=== PATIENT | female | born 1950 | race Caucasian/White ===

== ENCOUNTER 2018-04-16 19:07 | Inpatient (IN) ==
[2018-04-16] MEDS ORDERED: Morphine Inj 4 MG/ML Vial ONE (19:24)
[2018-04-16] MEDS ORDERED: Diphtheria/Tetanus/Pertussis Vaccine Inj 0.5 ML Syringe IM ONE (19:32)
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
[2018-04-16] MEDS ORDERED: Morphine Inj 4 MG/ML Vial IV.PUSH ONE (20:15)
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
[2018-04-16] MEDS ORDERED: Etomidate Inj 20 MG/10 ML Ampul IV.PUSH ONE (21:03)
[2018-04-16] MEDS ORDERED: Succinylcholine Inj 100 MG/5 ML Syringe IV.PUSH ONE (21:03)
[2018-04-16] MEDS ORDERED: Propofol 1000 mg/100 ml Inj 1,000 MG/100 ML BOTTLE IV.CONT PRN (21:14)
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
[2018-04-16] MEDS ORDERED: Tetanus/Diphtheria Toxoid Adult Vaccine Inj 0.5 ML Vial IM ONE (21:26)
[2018-04-16 21:42] LABS: ABG PCO2 45 mmHg (38-42); ABG PO2 383 mmHg (61-120)
[2018-04-16] MEDS ORDERED: Sod Chloride 0.9% Inj 1,000 ML IV.CONT SCH (21:45)
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
[2018-04-16] MEDS ORDERED: Sodium Chlor 0.9% Inj 250 ML ONE (22:31)
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
[2018-04-16] MEDS ORDERED: Heparin 10,000 UNITS/10 ML Vial (for IV use) ONE (22:54)
[2018-04-16] MEDS ORDERED: Protamine Sulfate Inj 50 MG/5 ML Vial ONE (23:37)
[2018-04-16 23:44] LABS: ABG Base Excess -3.9 mmol/L (-2-2); ABG PCO2 48 mmHg (38-42); ABG PO2 421 mmHg (61-120)
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
[2018-04-17] MEDS ORDERED: Sodium Phosphate Inj 30 MMOL in Sodium Chlor 0.9% Inj 250 ML IV.SIG PRN (00:03)
[2018-04-17] MEDS ORDERED: Potassium Phosphate 500 MG Soluble Tablet PO PRN ×2 (00:03)
[2018-04-17] MEDS ORDERED: Magnesium Sulfate Inj 2 GM in Sodium Chlor 0.9% Inj 96 ML IV.SIG PRN (00:03)
[2018-04-17] MEDS ORDERED: Magnesium Sulfate Inj 4 GM in Sodium Chlor 0.9% Inj 92 ML IV.SIG PRN (00:03)
[2018-04-17] MEDS ORDERED: Potassium Chlor 40 mEq Premix 40 MEQ/100 ML PIGGYBACK IV.SIG PRN (00:03)
[2018-04-17] MEDS ORDERED: Potassium Chlor 20 mEq Premix 20 MEQ/100 ML PIGGYBACK IV.SIG PRN ×2 (00:03)
[2018-04-17] MEDS ORDERED: Magnesium Oxide 400 MG Tablet PO PRN (00:03)
[2018-04-17] MEDS ORDERED: Potassium Phosphate Inj 30 MMOL in Sodium Chlor 0.9% Inj 250 ML IV.SIG PRN (00:03)
[2018-04-17] MEDS ORDERED: Potassium Chloride 25 MEQ Effervescent Tablet PO PRN (00:03)
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
[2018-04-17] MEDS: Docusate Sodium 100 MG Capsule PO SCH ×3 (00:13→20:55)
[2018-04-17] MEDS: fentaNYL 10 mcg/mL Premix Drip 2,500 MCG/250 ML BAG IV.SIG PRN ×2 (00:13→23:51)
[2018-04-17 00:32] LABS: Hematocrit 36.5 % (35.0-46.0); Hemoglobin 12.6 gm/dL (11.6-15.3); Mean Corpuscular HGB Conc 34.4 % (32.0-36.0); Mean Corpuscular Hemoglobin 31.1 pg (27.0-34.0); Mean Corpuscular Volume 90.6 fL (80.0-100.0); Mean Platelet Volume 7.1 fL (7.0-11.0); Platelet Count 129 th/mm3 (150-450); Red Blood Count 4.03 mil/mm3 (4.00-5.30); Red Cell Distribution Width 14.6 % (11.6-17.2); White Blood Count 24.1 th/mm3 (4.0-11.0)
[2018-04-17 00:39] LABS: Bilirubin,Urine Negative (Negative); Clarity,Urine Clear (Clear); Color,Urine Yellow (Yellw/Straw); Glucose,Urine (UA) 50 mg/dL (Negative); Leukocyte Esterase,Urine Negative (Negative); Nitrite,Urine Negative (Negative); Squamous Epithelial Cell,Urine <1 /hpf (0-5)
[2018-04-17 00:42] LABS: Amphetamine Screen,Urine Neg (Neg); Barbiturate Screen,Urine Neg (Neg); Cannabinoid Screen,Urine Neg (Neg); Cocaine Screen,Urine Neg (Neg)
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
[2018-04-17 00:51] LABS: Opiate Screen,Urine Neg (Neg)
[2018-04-17 00:55] LABS: INR 1.5 Ratio; Prothrombin Time 15.5 sec (9.8-11.6)
[2018-04-17 00:57] LABS: Albumin 1.8 g/dL (3.4-5.0); Calcium 6.7 mg/dL (8.5-10.1); Carbon Dioxide 25.3 meq/L (21.0-32.0); Magnesium 1.8 mg/dL (1.5-2.5); Phosphorus 3.4 mg/dL (2.5-4.9); Potassium 3.4 meq/L (3.5-5.1); Total Protein 3.7 g/dL (6.4-8.2)
[2018-04-17 01:01] LABS: Fibrinogen 93 mg/dL (227-377)
[2018-04-17 01:06] LABS: Baso # (Auto) 0.1 th/mm3 (0.0-0.2); Baso % (Auto) 0.3 % (0.0-2.0); Eos % (Auto) 0.1 % (0.0-4.0); Hematocrit 36.5 % (35.0-46.0); Hemoglobin 12.5 gm/dL (11.6-15.3); Lymph # (Auto) 0.9 th/mm3 (1.0-4.8); Lymph % (Auto) 3.6 % (9.0-44.0); Mean Corpuscular HGB Conc 34.2 % (32.0-36.0); Mean Corpuscular Volume 90.6 fL (80.0-100.0); Mean Platelet Volume 7.6 fL (7.0-11.0); Mono # (Auto) 1.8 th/mm3 (0.0-0.9); Mono % (Auto) 7.3 % (0.0-8.0); Neut # (Auto) 21.8 th/mm3 (1.8-7.7); Neut % (Auto) 88.7 % (16.0-70.0); Platelet Count 134 th/mm3 (150-450); Red Blood Count 4.02 mil/mm3 (4.00-5.30); Red Cell Distribution Width 14.6 % (11.6-17.2); White Blood Count 24.6 th/mm3 (4.0-11.0)
[2018-04-17] MEDS ORDERED: Protamine Sulfate Inj 50 MG/5 ML Vial IV.PUSH ONE (01:15)
[2018-04-17 01:24] LABS: Lymphocytes 4 % (9-44); Metamyelocytes 2 % (0-1); Monocytes 4 % (0-8); Myelocytes 2 % (0-0)
[2018-04-17 01:29] LABS: Platelet Morphology Normal (Normal)
[2018-04-17 01:30] LABS: Burr Cells 1+
[2018-04-17] MEDS ORDERED: Norepinephrine Inj 4 MG in Sodium Chlor 0.9% Inj 246 ML IV.SIG PRN (01:30)
[2018-04-17] MEDS ORDERED: Sod Chloride 0.9% Inj 1,000 ML IV.SIG SCH (01:30)
[2018-04-17 01:33] LABS: ABG Base Excess -5.2 mmol/L (-2-2); ABG PCO2 39 mmHg (38-42); ABG PO2 248 mmHg (61-120)
[2018-04-17] MEDS ORDERED: Sodium Chlor 0.9% Inj 250 ML IV.SIG SCH ×4 (02:00→11:00)
[2018-04-17] MEDS: Norepinephrine Inj 4 MG in Sodium Chlor 0.9% Inj 246 ML IV.SIG PRN ×3 (02:22→14:36)
[2018-04-17] MEDS: Insulin NovoLOG Aspart Correctional Sugar Inj SQ SCH ×4 (02:34→18:26)
[2018-04-17] MEDS: Pantoprazole Inj 40 MG Vial IV.PUSH SCH ×2 (02:34→23:51)
[2018-04-17] MEDS: Oral Hygiene Kit OROPHARYNG SCH ×3 (03:26→16:16)
[2018-04-17] MEDS: Chlorhexidine Gluconate 2% 1 Pack (2 Cloths) TOPICAL SCH (03:26)
[2018-04-17 03:32] LABS: Activated Partial Thrombo Time 37.1 sec (23.4-31.7); INR 1.3 Ratio; Prothrombin Time 12.7 sec (9.8-11.6)
[2018-04-17] MEDS ORDERED: Chlorhexidine Gluconate 2% 1 Pack (2 Cloths) TOPICAL PRN (04:00)
[2018-04-17] MEDS: Midazolam 100 MG/100 ML Inj 100 MG/100 ML BAG IV.CONT PRN (04:58)
[2018-04-17 05:20] LABS: ABG Base Excess -7.3 mmol/L (-2-2); ABG PCO2 34 mmHg (38-42); ABG PO2 253 mmHg (61-120)
[2018-04-17] MEDS ORDERED: Sodium Bicarbonate 8.4% Inj 50 MEQ/50 ML Syringe IV.PUSH ONE (05:25)
[2018-04-17 05:38] LABS: Baso # (Auto) 0.1 th/mm3 (0.0-0.2); Baso % (Auto) 0.4 % (0.0-2.0); Hematocrit 27.6 % (35.0-46.0); Hemoglobin 9.6 gm/dL (11.6-15.3); Lymph # (Auto) 0.7 th/mm3 (1.0-4.8); Mean Corpuscular HGB Conc 34.6 % (32.0-36.0); Mean Corpuscular Hemoglobin 30.9 pg (27.0-34.0); Mean Corpuscular Volume 89.3 fL (80.0-100.0); Mean Platelet Volume 7.5 fL (7.0-11.0); Mono # (Auto) 1.3 th/mm3 (0.0-0.9); Mono % (Auto) 10.5 % (0.0-8.0); Neut # (Auto) 10.1 th/mm3 (1.8-7.7); Neut % (Auto) 83.1 % (16.0-70.0); Platelet Count 71 th/mm3 (150-450); Red Cell Distribution Width 14.3 % (11.6-17.2); White Blood Count 12.1 th/mm3 (4.0-11.0)
[2018-04-17 06:14] LABS: Calcium 6.2 mg/dL (8.5-10.1); Carbon Dioxide 31.6 meq/L (21.0-32.0); Potassium 3.8 meq/L (3.5-5.1)
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
[2018-04-17 06:26] LABS: Albumin 1.2 g/dL (3.4-5.0); Calcium-Albumin Corrected 8.4 mg/dL (8.5-10.1)
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
--- NOTE | 2018-04-17 06:37 | CT ---
EXAM DATE: 04/17/2018 6:14 AM EST AGE/SEX: 67 years / Female INDICATIONS: Trauma yesterday CLINICAL DATA: This is the patient's subsequent encounter. Patient reports that signs and symptoms h ave been present for 1 day and indicates a pain score of Nonresponsive. MEDICAL/SURGICAL HISTORY: Non-responsive. Non-responsive. RADIATION DOSE: 8.97 CTDI (mGy) COMPARISON: [facility] – [place], [place] CHEST W CONTRAST, 04/16/2018. . TECHNIQUE: Multiple contiguous axial images were obtained through the chest during bolus infusion of 93 ml Omnipaque 350 (iohexol) nonionic water-soluble contrast as a cumulative dose for multiple exa ms. Images were obtained in suspended respiration using multiple row detector helical technique. U sing automated exposure control and adjustment of the mA and/or kV according to patient size, radiati on dose was kept as low as reasonably achievable to obtain optimal diagnostic quality images. DICOM format image data is available electronically for review and comparison. FINDINGS: Lungs: There is mild increased density seen at the posterior lower lungs bilaterally. Mediastinum: There is now an aortic stent graft in place at the proximal descending thoracic aorta c overing the previous aortic transection. Significant hemorrhage or contrast outside the stent is not seen. There is a mild amount of pericardial fluid seen anteriorly. There is persistent increased dens ity seen in the superior mediastinum presumably from prior hematoma. This is unchanged from the prior exam. Pleurae: No evidence of focal thickening or pleural effusion. Axillae: Unremarkable. Bony Structures: Unremarkable. Miscellaneous: The examination was extended to include the upper abdomen, and both adrenal glands ar e normal in size and configuration. CONCLUSION: 1. Aortic stent graft successfully covering the previously seen aortic transection. 2. Residual mediastinal hematoma which is unchanged. 3. Mild pericardial fluid. 4. Mild subpleural density/groundglass opacity in the posterior lower lungs bilaterally likely relat ed to atelectasis or contusions. Electronically signed by: Ganesh Flores MD Board Certified Radiologist 04/17/2018 6:35 AM EST
--- NOTE | 2018-04-17 06:58 | CT ---
EXAM DATE: 04/17/2018 6:17 AM EST AGE/SEX: 67 years / Female INDICATIONS: Trauma Yesterday CLINICAL DATA: This is the patient's subsequent encounter. Patient reports that signs and symptoms h ave been present for 1 day and indicates a pain score of Nonresponsive. MEDICAL/SURGICAL HISTORY: Non-responsive. Non-responsive. ORAL CONTRAST: No oral contrast ingested. RADIATION DOSE: 8.97 CTDI (mGy) [place] [facility] [place]EL[place] CONTRAST, 04/16/2018. . TECHNIQUE: Multiple contiguous axial images were obtained through the abdomen and pelvis following b olus infusion of 93 ml Omnipaque 350 (iohexol) nonionic water-soluble contrast as a cumulative dose for multiple exams. No oral contrast ingested. Using automated exposure control and adjustment of t he mA and/or kV according to patient size, radiation dose was kept as low as reasonably achievable to obtain optimal diagnostic quality images. DICOM format image data is available electronically for r eview and comparison. FINDINGS: Lower Lungs: There is increased density in the posterior lower lungs bilaterally likely related to co ntusions or atelectasis. Aortic stent graft is seen in the descending thoracic aorta Liver: The liver has a homogeneous density without space-occupying lesion. There is no dilation of th e biliary tree. Multiple gas densities are seen in the gallbladder consistent with gas/nitrogen withi n gallstones. Spleen: There is a persistent 1.6 cm hypodensity seen at the inferior aspect of the spleen. This brooks s not some nodular enhancement. This could represent small pre-existing lesion such as a hemangioma o r a small traumatic injury. No significant hemorrhage is seen around the inferior aspect of the splee n. Pancreas: There is some induration in the fat around the duodenum and pancreatic head region. The fa t around the pancreatic body appears normal. Kidneys: Normal in size and shape. No evidence of mass or hydronephrosis. Adrenal Glands: There is diffuse enlargement of the right adrenal gland which appears worse. The ri ght lung is 4.4 x 1.7 x 3.5 cm. This could be from a adrenal gland hemorrhage. Active hemorrhage in t his region is not seen. The left adrenal gland is normal. Aorta: The aorta and proximal iliac vessels are grossly unremarkable without aneurysmal dilation. Bowel/Mesentery: Again there is induration in the right quadrant around the duodenum and pancreatic head region. This could be from injury to these structures. Scattered colonic diverticula are seen. Abdominal Wall: There is a minimal periumbilical hernia containing a small amount of mesenteric fat. Retroperitoneum: There is right perinephric hematoma extending into the inferior right retroperitone um. There is hematoma seen in the pelvic retroperitoneal regions bilaterally. Bladder: Contours are smooth. There is a Liz catheter. Reproductive Organs: No abnormal masses or calcifications seen. The patient has a supporting pessary Ring-type structure in the vagina. Inguinal: The inguinal region is unremarkable without evidence of adenopathy. There is prominent fat in the left inguinal canal. Bony Structures: The bony fracture more fully described in the initial CT examination. The patient i s transverse fractures on the right the first through third lumbar levels and the left third through fifth lumbar levels. There is a fracture through the left sacrum. There is a large hematoma in the posterior right lateral abdomen and pelvis superficial fat region. T he demonstrates some increased density in this region likely related to acute hemorrhage. The hematom a in this region there appears much larger. CONCLUSION: 1. Enlarging hematoma or some active hemorrhage in the posterior lateral right abdomen and pelvis re gion in the subcutaneous fat. 2. Persistent areas of hematoma in the retroperitoneum being greater on the right. These were presen t previously. 3. Diffuse enlargement of the right adrenal gland likely from hemorrhage. This does appear worse whe n compared to the prior exam. 4. Hazy density seen around the duodenum and pancreatic head regions which could represent injury to these structures. 5. Posterior lung contusions or atelectasis. 6. Aortic stent graft in the descending thoracic aorta. 7. Gallstones. 8. 1.6 cm hypodensity at the inferior aspect of the spleen related to either a pre-existing lesion s uch as a hemangioma or storm small splenic injury. This is unchanged. 9. Lumbar transverse process fractures and a left sacral fracture. This information concerning the enlarging hematoma in the lateral right abdomen and pelvis subcutaneo us fat was called to the floor and relayed to Mago, the patient's nurse. Electronically signed by: Ganesh Flores MD Board Certified Radiologist 04/17/2018 6:57 AM EST
[2018-04-17] MEDS ORDERED: Albumin Human 5% Inj 250 ML IV.SIG ONE ×2 (06:59→07:42)
[2018-04-17 07:04] LABS: Lymphocytes 5 % (9-44); Monocytes 4 % (0-8)
[2018-04-17 07:05] LABS: Platelet Morphology Normal (Normal)
[2018-04-17] MEDS ORDERED: Albumin Human 5% Inj 500 ML IV.SIG ONE ×2 (07:30)
[2018-04-17] MEDS: Vasopressin Inj 40 UNIT in Dextrose 5% in Water Inj 98 ML IV.CONT PRN ×4 (07:32→20:56)
[2018-04-17] MEDS ORDERED: Sodium Chlor 0.9% Inj 500 ML IV.CONT ONE (08:00)
[2018-04-17 08:38] LABS: Hematocrit 19.7 % (35.0-46.0)
[2018-04-17] MEDS: Chlorhexidine 0.12% Oral Kit 15 ML UDC OROPHARYNG SCH ×2 (09:32→20:55)
--- NOTE | 2018-04-17 09:57 | ECG ---
Date Performed: 04/16/2018 Time Performed: 19:58:06 PTAGE: 67 years EKG: Sinus rhythm NONSPECIFIC ST & T-WAVE ABNORMALITY BORDERLINE ECG NO PREVIOUS TRACING DOCTOR: Ruperto Goncalves Interpretating Date/Time 04/17/2018 09:55:17
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
[2018-04-17] MEDS ORDERED: Gelatin 12 MM/7 MM Topical Foam ONE (11:39)
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
--- NOTE | 2018-04-17 13:49 | ECHRPT ---
Indication: Shortness of Breath CONCLUSIONS Normal left ventricular size. Wall thickness is measured at the upper limits of normal. The left ventricular systolic function is normal with an estimated ejection fraction in the range of 60-65%. Normal regional wall motion. Trace mitral valve regurgitation. Trileaflet aortic valve. The aortic valve is not well visualized. There is trace tricuspid valve regurgitation. The estimated pulmonary arterial pressure is 41 mmHg. BP: 135 / 44 HR: 100 Rhythm: MEASUREMENTS (Male / Female) Normal Values Technical Quality:Fair 2D ECHO LV Diastolic Diameter PLAX 3.8 cm 4.2 - 5.9 / 3.9 - 5.3 cm LV Systolic Diameter PLAX 2.7 cm IVS Diastolic Thickness 1.0 cm 0.6 - 1.0 / 0.6 - 0.9 cm LVPW Diastolic Thickness 0.9 cm 0.6 - 1.0 / 0.6 - 0.9 cm LV Relative Wall Thickness 0.5 RV Internal Dim ED PLAX 3.1 cm LVOT Diameter 2.0 cm Aortic Root Diameter 2.8 cm LA Systolic Diameter LX 3.0 cm 3.0 - 4.0 / 2.7 - 3.8 cm DOPPLER AV Peak Velocity 143.0 cm/s AV Peak Gradient 8.2 mmHg LVOT Peak Velocity 95.3 cm/s LVOT Peak Gradient 3.6 mmHg AV Area Cont Eq pk 2.1 cm Mitral E Point Velocity 49.4 cm/s Mitral A Point Velocity 85.9 cm/s Mitral E to A Ratio 0.6 LV E' Lateral Velocity 8.4 cm/s Mitral E to LV E' Lateral Ratio 5.9 LV E' Septal Velocity 5.1 cm/s Mitral E to LV E' Septal Ratio 9.7 TR Peak Velocity 278.0 cm/s TR Peak Gradient 30.9 mmHg Right Atrial Pressure 10.0 mmHg Pulmonary Artery Systolic Pressu 40.9 mmHg Right Ventricular Systolic Press 40.9 mmHg PV Peak Velocity 95.0 cm/s PV Peak Gradient 3.6 mmHg FINDINGS LEFT VENTRICLE Normal left ventricular size. Wall thickness is measured at the upper limits of normal. The left ventricular systolic function is normal with an estimated ejection fraction in the range of 60-65%. Normal regional wall motion. RIGHT VENTRICLE Normal right ventricular size and systolic function. LEFT ATRIUM The left atrial size is normal. RIGHT ATRIUM The right atrial size is normal. ATRIAL SEPTUM Normal atrial septal thickness without atrial level shunting by limited color doppler interrogation. AORTA The aortic root and proximal ascending aorta are normal in size on limited imaging. MITRAL VALVE Trace mitral valve regurgitation. AORTIC VALVE Trileaflet aortic valve. The aortic valve is not well visualized. TRICUSPID VALVE There is trace tricuspid valve regurgitation. The estimated pulmonary arterial pressure is 41 mmHg. PULMONARY VALVE The pulmonary valve is not well visualized. VESSELS The inferior vena cava is normal in size. PERICARDIUM No pericardial effusion. Gary Shahid MD (Electronically Signed) Final Date:17 April 2018 13:48
[2018-04-17 14:43] LABS: ABG Base Excess -3.7 mmol/L (-2-2); ABG PCO2 37 mmHg (38-42); ABG PO2 173 mmHg (61-120)
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
--- NOTE | 2018-04-17 17:36 | P.PNVS ---
Subjective Subjective/Hospital Course: 67-year-old female status post thoracic aortic aneurysm disruption and endovascular aortic thoracic stent placement Postoperatively patient remained relatively stable however with continuous bleeding into the right gluteal soft tissue spaces Most of the bleeding here is self-contained however there was a active bleeding blush and patient was taken to the endovascular lab / underwent embolization of a branch of the superior gluteal artery with complete cessation of bleeding Patient remains intubated ventilated Groin puncture sites are clean Patient has excellent distal pulses in both arms and legs Large hematoma of the right gluteal and hip area from soft tissue hemorrhage. The hematoma will eventually coalesce into a fluctuant collection and then it can be drained in the OR electively Until then no further therapy is necessary for the same Objective Vital Signs / I&O: Vital Signs 04/16/18 19:17 04/16/18 20:26 04/16/18 21:50 Temperature 98.0 F Pulse Rate 80 Respiratory Rate 20 Blood Pressure 101/50 L Pulse Oximetry 100 98 100 04/16/18 22:21 04/16/18 23:01 04/16/18 23:42 Temperature Pulse Rate 102 H Respiratory Rate 20 15 20 Blood Pressure Pulse Oximetry 100 100 04/16/18 23:43 04/16/18 23:45 04/17/18 00:00 Temperature 95.2 F L Pulse Rate 103 H 105 H 119 H Respiratory Rate 21 31 H 12 Blood Pressure 108/63 114/56 L Pulse Oximetry 100 100 100 04/17/18 00:14 04/17/18 00:15 04/17/18 00:23 Temperature 95.4 F L 95.5 F L Pulse Rate 108 H 105 H Respiratory Rate 13 10 L 10 L Blood Pressure 123/73 Pulse Oximetry 99 100 100 04/17/18 01:00 04/17/18 01:34 04/17/18 02:00 Temperature 95.9 F L 96.1 F L 96.1 F L Pulse Rate 99 H 74 90 Respiratory Rate 10 L 16 16 Blood Pressure 142/63 H Pulse Oximetry 100 100 100 04/17/18 02:15 04/17/18 02:16 04/17/18 02:30 Temperature 96.3 F L 96.3 F L 96.4 F L Pulse Rate 86 90 92 H Respiratory Rate 16 16 16 Blood Pressure Pulse Oximetry 84 L 100 100 04/17/18 03:00 04/17/18 03:40 04/17/18 03:47 Temperature 96.6 F L Pulse Rate 103 H 109 H Respiratory Rate 16 18 18 Blood Pressure Pulse Oximetry 100 100 04/17/18 04:00 04/17/18 04:15 04/17/18 04:30 Temperature 97.7 F 97.9 F 97.9 F Pulse Rate 107 H 110 H 93 H Respiratory Rate 16 16 16 Blood Pressure Pulse Oximetry 100 100 04/17/18 04:39 04/17/18 05:00 04/17/18 06:00 Temperature 97.9 F 97.7 F Pulse Rate 107 H 107 H 107 H Respiratory Rate 16 16 19 Blood Pressure Pulse Oximetry 100 04/17/18 07:00 04/17/18 07:15 04/17/18 07:30 Temperature 97.5 F L 97.7 F 97.7 F Pulse Rate 127 H 108 H 102 H Respiratory Rate 16 16 16 Blood Pressure Pulse Oximetry 100 100 100 04/17/18 07:45 04/17/18 08:00 04/17/18 08:03 Temperature 97.7 F 97.7 F Pulse Rate 103 H 103 H 104 H Respiratory Rate 16 16 17 Blood Pressure Pulse Oximetry 100 100 100 04/17/18 08:09 04/17/18 08:15 04/17/18 08:30 Temperature 97.7 F 97.7 F 97.7 F Pulse Rate 113 H 106 H 111 H Respiratory Rate 18 16 16 Blood Pressure 139/73 Pulse Oximetry 100 100 100 04/17/18 08:31 04/17/18 08:45 04/17/18 08:52 Temperature 97.7 F 97.7 F 97.7 F Pulse Rate 115 H 113 H 107 H Respiratory Rate 21 17 16 Blood Pressure 114/56 L 101/57 L Pulse Oximetry 71 L 98 100 04/17/18 09:00 04/17/18 09:02 04/17/18 09:15 Temperature 97.9 F 97.9 F 97.9 F Pulse Rate 111 H 103 H 103 H Respiratory Rate 17 16 16 Blood Pressure Pulse Oximetry 100 100 04/17/18 09:30 04/17/18 09:45 04/17/18 09:58 Temperature 97.9 F 97.9 F 97.9 F Pulse Rate 96 H 99 H 121 H Respiratory Rate 16 16 25 H Blood Pressure Pulse Oximetry 100 100 04/17/18 10:00 04/17/18 10:15 04/17/18 10:30 Temperature 97.9 F 98.1 F 98.1 F Pulse Rate 125 H 106 H 88 Respiratory Rate 19 23 16 Blood Pressure Pulse Oximetry 89 L 85 L 100 04/17/18 10:45 04/17/18 11:00 04/17/18 11:09 Temperature 98.1 F 98.1 F 98.2 F Pulse Rate 88 94 H 115 H Respiratory Rate 16 14 16 Blood Pressure 115/70 Pulse Oximetry 100 100 04/17/18 11:14 04/17/18 12:06 04/17/18 12:07 Temperature 98.2 F Pulse Rate Respiratory Rate Blood Pressure 83/45 L Pulse Oximetry 100 04/17/18 12:13 04/17/18 12:15 04/17/18 12:23 Temperature 98.1 F 98.1 F 98.1 F Pulse Rate Respiratory Rate Blood Pressure 63/35 L 72/44 L Pulse Oximetry 04/17/18 12:28 04/17/18 12:30 04/17/18 12:33 Temperature 98.1 F 98.1 F 97.9 F Pulse Rate Respiratory Rate Blood Pressure 108/63 90/53 L Pulse Oximetry 04/17/18 12:45 04/17/18 12:58 04/17/18 13:00 Temperature 97.9 F 97.9 F 97.9 F Pulse Rate 99 H 98 H Respiratory Rate 15 15 Blood Pressure 120/58 L Pulse Oximetry 100 100 04/17/18 13:15 04/17/18 13:22 04/17/18 13:30 Temperature 97.9 F 98.2 F Pulse Rate 109 H 102 H Respiratory Rate 16 16 16 Blood Pressure Pulse Oximetry 100 04/17/18 13:43 04/17/18 13:45 04/17/18 14:00 Temperature 98.2 F 98.1 F 98.1 F Pulse Rate 101 H 101 H 96 H Respiratory Rate 16 16 16 Blood Pressure Pulse Oximetry 95 94 L 98 04/17/18 14:10 04/17/18 14:15 04/17/18 14:30 Temperature 98.1 F 98.1 F 97.9 F Pulse Rate 97 H 95 H 99 H Respiratory Rate 16 16 16 Blood Pressure Pulse Oximetry 100 100 100 04/17/18 14:41 04/17/18 14:45 04/17/18 15:00 Temperature 98.1 F 97.9 F 97.9 F Pulse Rate 88 90 88 Respiratory Rate 16 16 16 Blood Pressure Pulse Oximetry 100 100 100 04/17/18 15:13 04/17/18 15:15 04/17/18 15:28 Temperature 97.9 F 97.8 F 97.9 F Pulse Rate 83 84 88 Respiratory Rate 16 16 16 Blood Pressure Pulse Oximetry 100 100 100 04/17/18 15:30 04/17/18 15:45 04/17/18 16:00 Temperature 97.7 F 97.5 F L 97.7 F Pulse Rate 87 90 93 H Respiratory Rate 16 16 16 Blood Pressure Pulse Oximetry 100 100 Intake & Output 04/16/18 04/17/18 04/17/18 18:59 06:59 18:59 Intake Total 2064 / 2064 9582 / 9582 Output Total 1000 / 1000 Balance 1064 / 1064 9582 / 9582 Weight 101.2 kg Intake: IV 1250 / 1250 6395 / 6395 NS Inj 250 ML @ 0 mls/hr .ROUTE 250 / 250 .STK-MED ONE Rx#:[id number] LR 1000 mL Inj 1,000 ML @ 150 1645 / 1645 mls/hr IV.CONT .Q6H40M CRISTHIAN Rx#: [id number] NS Inj 1,000 ML @ 100 mls/hr IV 0 / 0 .CONT .Q10H CRISTHIAN Rx#:[id number] NS Inj 500 ML @ Wide Open IV. 500 / 500 CONT .Q0M ONE Rx#:[id number] Buminate 5% Inj 500 ML @ 250 500 / 500 mls/hr IV.SIG ONCE ONE Rx#: [id number] LR 1000 mL Inj 1,000 ML @ Wide 3000 / 3000 Open IV.SIG BOLUS ONE Rx#: [id number] Levophed Inj 4 MG In NS Inj 246 500 / 500 ML @ 2 MCG/MIN 7.5 mls/hr IV. SIG TITRATE PRN Rx#:[id number] NS Inj 1,000 ML @ 1000 mls/hr 1000 / 1000 IV.SIG BOLUS CRISTHIAN Rx#:[id number] NS Inj 250 ML @ 15 mls/hr IV. 250 / 250 SIG ONCE CRISTHIAN Rx#:[id number] Other 200 / 200 Pre-Pooled Cryo Thawed 10units 200 / 200 Unit [id number] Intake (Blood Product) Amt 614 / 614 3187 / 3187 Plasma Thawed 5 Day Acda Unit 234 / 234 [id number] Plasma Thawed 5 Day Acda Unit 222 / 222 [id number] Plasma Thawed 5 Day Cp2d Unit 307 / 307 [id number] Plasma Thawed 5 Day Cp2d Unit 338 / 338 [id number] Plt Pheresis A Leukored Pas 287 / 287 Unit [id number] Plt Pheresis C Leukored Pas 199 / 199 Unit [id number] Pre-Pooled Cryo Thawed 10units 214 / 214 Unit [id number] Rbc As-3 Leukoreduced Unit 400 / 400 [id number] Rbc As-3 Leukoreduced Unit 400 / 400 [id number] Rbc As-3 Leukoreduced Unit 400 / 400 [id number] Rbc As-3 Leukoreduced Unit 0 / 0 [id number] Rbc As-3 Leukoreduced Unit 400 / 400 [id number] Rbc As-3 Leukoreduced Unit 400 / 400 [id number] Output: Urine Amount (Catheter) 1000 / 1000 Indwelling Temp Sensing 1000 / 1000 Catheter Gastric Drainage 0 / 0 Orogastric Tube 0 / 0 Other: Weight On Admission 95.2 kg Laboratory Results - last 24 hr 04/16/18 04/16/18 04/16/18 19:17 19:17 19:17 WBC RBC Hgb POC Hgb (Calc) 13.9 Hct POC Hct 41.0 MCV MCH MCHC RDW Plt Count MPV Prelim Diff (Auto) Neut % (Auto) Lymph % (Auto) [place] % (Auto) Eos % (Auto) Baso % (Auto) Neut # (Auto) Lymph # (Auto) [place] # (Auto) Eos # (Auto) Baso # (Auto) WBC Differential Seg Neuts % (Manual) Band Neuts % (Manual) Lymphocytes % (Manual) Monocytes % (Manual) Basophils % (Manual) Metamyelocytes % (Man) Myelocytes % (Man) Abs Neuts (Manual) Differential Comment Platelet Estimate Platelet Morphology [place] Cells PT Cancelled INR Cancelled APTT Cancelled Fibrinogen Puncture Site Patient Temperature O2 Saturation ABG pH ABG pCO2 ABG pO2 ABG HCO3 ABG O2 Content ABG Base Excess ABG Methemoglobin Hemoglobin Carboxyhemoglobin O2 Delivery Device Vent Setting Inspired O2 Critical Value POC Sodium 146 H Sodium POC Potassium 3.5 L Potassium POC Chloride 104 Chloride Carbon Dioxide Anion Gap POC BUN 13 BUN Creatinine POC Creatinine 1.3 Estimated GFR POC Glucose 147 H Random Glucose Calcium Calcium Adj for Albumin Phosphorus Magnesium Total Bilirubin AST ALT Alkaline Phosphatase Total Protein Albumin Urine Color Urine Clarity Urine pH Ur Specific [place] Urine Protein Urine Glucose (UA) Urine Ketones Urine Occult Blood Urine Nitrate Urine Bilirubin Urine Urobilinogen Ur Leukocyte Esterase Urine RBC Urine WBC Ur Squamous Epith Cells Micro UA Comment Ur Microscopic Review Urine Culture Comments Nasal Screen MRSA (PCR) Urine Opiates Screen Ur Barbiturates Screen Ur Amphetamines Screen U Benzodiazepines Scrn Urine Cocaine Screen U Cannabinoids Screen Serum Alcohol Less than 3 Blood Type O Positive Antibody Screen Negative MTS Gel Crossmatch Blood Bank Comment Bld Prod Order Comment 04/16/18 04/16/18 04/16/18 19:17 20:39 21:30 WBC RBC Hgb POC Hgb (Calc) Hct POC Hct MCV MCH MCHC RDW Plt Count MPV Prelim Diff (Auto) Neut % (Auto) Lymph % (Auto) [place] % (Auto) Eos % (Auto) Baso % (Auto) Neut # (Auto) Lymph # (Auto) [place] # (Auto) Eos # (Auto) Baso # (Auto) WBC Differential Seg Neuts % (Manual) Band Neuts % (Manual) Lymphocytes % (Manual) Monocytes % (Manual) Basophils % (Manual) Metamyelocytes % (Man) Myelocytes % (Man) Abs Neuts (Manual) Differential Comment Platelet Estimate Platelet Morphology [place] Cells PT INR APTT Fibrinogen Puncture Site Art line Patient Temperature 98.6 O2 Saturation 99 ABG pH 7.23 L* ABG pCO2 45 H ABG pO2 383 H ABG HCO3 18 L ABG O2 Content 13.6 ABG Base Excess -8.0 L ABG Methemoglobin 0.6 Hemoglobin 9.1 L Carboxyhemoglobin 0.4 O2 Delivery Device Ventilator Vent Setting 14/550/it0.8/5peep Inspired O2 80 Critical Value Yes POC Sodium Sodium POC Potassium Potassium POC Chloride Chloride Carbon Dioxide Anion Gap POC BUN BUN Creatinine POC Creatinine Estimated GFR POC Glucose Random Glucose Calcium Calcium Adj for Albumin Phosphorus Magnesium Total Bilirubin AST ALT Alkaline Phosphatase Total Protein Albumin Urine Color Urine Clarity Urine pH Ur Specific [place] Urine Protein Urine Glucose (UA) Urine Ketones Urine Occult Blood Urine Nitrate Urine Bilirubin Urine Urobilinogen Ur Leukocyte Esterase Urine RBC Urine WBC Ur Squamous Epith Cells Micro UA Comment Ur Microscopic Review Urine Culture Comments Nasal Screen MRSA (PCR) Urine Opiates Screen Ur Barbiturates Screen Ur Amphetamines Screen U Benzodiazepines Scrn Urine Cocaine Screen U Cannabinoids Screen Serum Alcohol Blood Type Antibody Screen MTS Gel Crossmatch See Detail See Detail Blood Bank Comment Bld Prod Order Comment 04/16/18 04/16/18 04/16/18 21:54 23:22 23:56 WBC RBC Hgb POC Hgb (Calc) Hct POC Hct MCV MCH MCHC RDW Plt Count MPV Prelim Diff (Auto) Neut % (Auto) Lymph % (Auto) [place] % (Auto) Eos % (Auto) Baso % (Auto) Neut # (Auto) Lymph # (Auto) [place] # (Auto) Eos # (Auto) Baso # (Auto) WBC Differential Seg Neuts % (Manual) Band Neuts % (Manual) Lymphocytes % (Manual) Monocytes % (Manual) Basophils % (Manual) Metamyelocytes % (Man) Myelocytes % (Man) Abs Neuts (Manual) Differential Comment Platelet Estimate Platelet Morphology [place] Cells PT INR APTT Fibrinogen Puncture Site Desire Patient Temperature 98.6 O2 Saturation 97 ABG pH 7.28 L* ABG pCO2 48 H ABG pO2 421 H ABG HCO3 22 ABG O2 Content 15.1 ABG Base Excess -3.9 L ABG Methemoglobin 1.5 Hemoglobin 10.3 L Carboxyhemoglobin 1.0 O2 Delivery Device Vent Vent Setting Or settings Inspired O2 Critical Value Yes POC Sodium Sodium POC Potassium Potassium POC Chloride Chloride Carbon Dioxide Anion Gap POC BUN BUN Creatinine POC Creatinine Estimated GFR POC Glucose Random Glucose Calcium Calcium Adj for Albumin Phosphorus Magnesium Total Bilirubin AST ALT Alkaline Phosphatase Total Protein Albumin Urine Color Urine Clarity Urine pH Ur Specific [place] Urine Protein Urine Glucose (UA) Urine Ketones Urine Occult Blood Urine Nitrate Urine Bilirubin Urine Urobilinogen Ur Leukocyte Esterase Urine RBC Urine WBC Ur Squamous Epith Cells Micro UA Comment Ur Microscopic Review Urine Culture Comments Nasal Screen MRSA (PCR) Not detected Urine Opiates Screen Ur Barbiturates Screen Ur Amphetamines Screen U Benzodiazepines Scrn Urine Cocaine Screen U Cannabinoids Screen Serum Alcohol Blood Type Antibody Screen MTS Gel Crossmatch See Detail Blood Bank Comment Bld Prod Order Comment 04/17/18 04/17/18 04/17/18 00:23 00:23 00:23 WBC 24.6 H 24.1 H RBC 4.02 4.03 Hgb 12.5 12.6 POC Hgb (Calc) Hct 36.5 36.5 POC Hct MCV 90.6 90.6 MCH 31.0 31.1 MCHC 34.2 34.4 RDW 14.6 14.6 Plt Count 134 L 129 L MPV 7.6 7.1 Prelim Diff (Auto) Slide review pending Neut % (Auto) 88.7 H Lymph % (Auto) 3.6 L [place] % (Auto) 7.3 Eos % (Auto) 0.1 Baso % (Auto) 0.3 Neut # (Auto) 21.8 H Lymph # (Auto) 0.9 L [place] # (Auto) 1.8 H Eos # (Auto) 0.0 Baso # (Auto) 0.1 WBC Differential Manual diff final Seg Neuts % (Manual) 75 H Band Neuts % (Manual) 12 H Lymphocytes % (Manual) 4 L Monocytes % (Manual) 4 Basophils % (Manual) 1 Metamyelocytes % (Man) 2 H Myelocytes % (Man) 2 H Abs Neuts (Manual) 22.4 H Differential Comment . Platelet Estimate Low L Platelet Morphology Normal [place] Cells 1+ H PT INR APTT Fibrinogen Puncture Site Patient Temperature O2 Saturation ABG pH ABG pCO2 ABG pO2 ABG HCO3 ABG O2 Content ABG Base Excess ABG Methemoglobin Hemoglobin Carboxyhemoglobin O2 Delivery Device Vent Setting Inspired O2 Critical Value POC Sodium Sodium 148 H POC Potassium Potassium 3.4 L POC Chloride Chloride 115 H Carbon Dioxide 25.3 Anion Gap 8 POC BUN BUN 13 Creatinine 0.79 POC Creatinine Estimated GFR 73 L POC Glucose Random Glucose 230 H Calcium 6.7 L* Calcium Adj for Albumin 8.5 Phosphorus 3.4 Magnesium 1.8 Total Bilirubin 2.6 H AST 175 H ALT 74 H Alkaline Phosphatase 54 Total Protein 3.7 L Albumin 1.8 L Urine Color Urine Clarity Urine pH Ur Specific [place] Urine Protein Urine Glucose (UA) Urine Ketones Urine Occult Blood Urine Nitrate Urine Bilirubin Urine Urobilinogen Ur Leukocyte Esterase Urine RBC Urine WBC Ur Squamous Epith Cells Micro UA Comment Ur Microscopic Review Urine Culture Comments Nasal Screen MRSA (PCR) Urine Opiates Screen Ur Barbiturates Screen Ur Amphetamines Screen U Benzodiazepines Scrn Urine Cocaine Screen U Cannabinoids Screen Serum Alcohol Blood Type Antibody Screen MTS Gel Crossmatch Blood Bank Comment Bld Prod Order Comment 04/17/18 04/17/18 04/17/18 00:23 00:23 00:23 WBC RBC Hgb POC Hgb (Calc) Hct POC Hct MCV MCH MCHC RDW Plt Count MPV Prelim Diff (Auto) Neut % (Auto) Lymph % (Auto) [place] % (Auto) Eos % (Auto) Baso % (Auto) Neut # (Auto) Lymph # (Auto) [place] # (Auto) Eos # (Auto) Baso # (Auto) WBC Differential Seg Neuts % (Manual) Band Neuts % (Manual) Lymphocytes % (Manual) Monocytes % (Manual) Basophils % (Manual) Metamyelocytes % (Man) Myelocytes % (Man) Abs Neuts (Manual) Differential Comment Platelet Estimate Platelet Morphology [place] Cells PT 15.5 H INR 1.5 APTT Greater than 277.5 H* Fibrinogen 93 L* Puncture Site Patient Temperature O2 Saturation ABG pH ABG pCO2 ABG pO2 ABG HCO3 ABG O2 Content ABG Base Excess ABG Methemoglobin Hemoglobin Carboxyhemoglobin O2 Delivery Device Vent Setting Inspired O2 Critical Value POC Sodium Sodium POC Potassium Potassium POC Chloride Chloride Carbon Dioxide Anion Gap POC BUN BUN Creatinine POC Creatinine Estimated GFR POC Glucose Random Glucose Calcium Calcium Adj for Albumin Phosphorus Magnesium Total Bilirubin AST ALT Alkaline Phosphatase Total Protein Albumin Urine Color Yellow Urine Clarity Clear Urine pH 7.0 Ur Specific [place] 1.040 H Urine Protein Negative Urine Glucose (UA) 50 Urine Ketones Negative Urine Occult Blood Large H Urine Nitrate Negative Urine Bilirubin Negative Urine Urobilinogen Less than 2 Ur Leukocyte Esterase Negative Urine RBC Urine WBC 1 Ur Squamous Epith Cells <1 Micro UA Comment Culture not ind Ur Microscopic Review Not Reportable Urine Culture Comments Culture not ind Nasal Screen MRSA (PCR) Urine Opiates Screen Neg Ur Barbiturates Screen Neg Ur Amphetamines Screen Neg U Benzodiazepines Scrn Neg Urine Cocaine Screen Neg U Cannabinoids Screen Neg Serum Alcohol Blood Type Antibody Screen [facility] Gel Crossmatch Blood Bank Comment Bld Prod Order Comment 04/17/18 04/17/18 04/17/18 01:21 01:29 02:28 WBC RBC Hgb POC Hgb (Calc) Hct POC Hct MCV MCH MCHC RDW Plt Count MPV Prelim Diff (Auto) Neut % (Auto) Lymph % (Auto) [place] % (Auto) Eos % (Auto) Baso % (Auto) Neut # (Auto) Lymph # (Auto) [place] # (Auto) Eos # (Auto) Baso # (Auto) WBC Differential Seg Neuts % (Manual) Band Neuts % (Manual) Lymphocytes % (Manual) Monocytes % (Manual) Basophils % (Manual) Metamyelocytes % (Man) Myelocytes % (Man) Abs Neuts (Manual) Differential Comment Platelet Estimate Platelet Morphology [place] Cells PT INR APTT Fibrinogen Puncture Site [place] Patient Temperature 98.6 O2 Saturation 97 ABG pH 7.33 L ABG pCO2 39 ABG pO2 248 H ABG HCO3 20 L ABG O2 Content 15.6 ABG Base Excess -5.2 L ABG Methemoglobin 1.6 Hemoglobin 11.0 L Carboxyhemoglobin 1.5 O2 Delivery Device Vent Vent Setting See comments Inspired O2 50 Critical Value No POC Sodium Sodium POC Potassium Potassium POC Chloride Chloride Carbon Dioxide Anion Gap POC BUN BUN Creatinine POC Creatinine Estimated GFR POC Glucose 191 H Random Glucose Calcium Calcium Adj for Albumin Phosphorus Magnesium Total Bilirubin AST ALT Alkaline Phosphatase Total Protein Albumin Urine Color Urine Clarity Urine pH Ur Specific [place] Urine Protein Urine Glucose (UA) Urine Ketones Urine Occult Blood Urine Nitrate Urine Bilirubin Urine Urobilinogen Ur Leukocyte Esterase Urine RBC Urine WBC Ur Squamous Epith Cells Micro UA Comment Ur Microscopic Review Urine Culture Comments Nasal Screen MRSA (PCR) Urine Opiates Screen Ur Barbiturates Screen Ur Amphetamines Screen U Benzodiazepines Scrn Urine Cocaine Screen U Cannabinoids Screen Serum Alcohol Blood Type Antibody Screen MTS Gel Crossmatch Blood Bank Comment Bld Prod Order Comment 04/17/18 04/17/18 04/17/18 03:04 03:50 05:08 WBC RBC Hgb POC Hgb (Calc) Hct POC Hct MCV MCH MCHC RDW Plt Count MPV Prelim Diff (Auto) Neut % (Auto) Lymph % (Auto) [place] % (Auto) Eos % (Auto) Baso % (Auto) Neut # (Auto) Lymph # (Auto) [place] # (Auto) Eos # (Auto) Baso # (Auto) WBC Differential Seg Neuts % (Manual) Band Neuts % (Manual) Lymphocytes % (Manual) Monocytes % (Manual) Basophils % (Manual) Metamyelocytes % (Man) Myelocytes % (Man) Abs Neuts (Manual) Differential Comment Platelet Estimate Platelet Morphology [place] Cells PT 12.7 H INR 1.3 APTT 37.1 H D Fibrinogen Cancelled Puncture Site Desire Patient Temperature 98.6 O2 Saturation 97 ABG pH 7.34 L ABG pCO2 34 L ABG pO2 253 H ABG HCO3 18 L ABG O2 Content 13.5 ABG Base Excess -7.3 L ABG Methemoglobin 1.5 Hemoglobin 9.5 L Carboxyhemoglobin 1.6 O2 Delivery Device Vent Vent Setting See comments Inspired O2 50 Critical Value No POC Sodium Sodium POC Potassium Potassium POC Chloride Chloride Carbon Dioxide Anion Gap POC BUN BUN Creatinine POC Creatinine Estimated GFR POC Glucose Random Glucose Calcium Calcium Adj for Albumin Phosphorus Magnesium Total Bilirubin AST ALT Alkaline Phosphatase Total Protein Albumin Urine Color Urine Clarity Urine pH Ur Specific [place] Urine Protein Urine Glucose (UA) Urine Ketones Urine Occult Blood Urine Nitrate Urine Bilirubin Urine Urobilinogen Ur Leukocyte Esterase Urine RBC Urine WBC Ur Squamous Epith Cells Micro UA Comment Ur Microscopic Review Urine Culture Comments Nasal Screen MRSA (PCR) Urine Opiates Screen Ur Barbiturates Screen Ur Amphetamines Screen U Benzodiazepines Scrn Urine Cocaine Screen U Cannabinoids Screen Serum Alcohol Blood Type Antibody Screen MTS Gel Crossmatch See Detail Blood Bank Comment Bld Prod Order Comment Cancelled 04/17/18 04/17/18 04/17/18 05:20 05:20 05:28 WBC 12.1 H D RBC 3.10 L Hgb 9.6 L D POC Hgb (Calc) Hct 27.6 L POC Hct MCV 89.3 MCH 30.9 MCHC 34.6 RDW 14.3 Plt Count 71 L D MPV 7.5 Prelim Diff (Auto) Slide review pending Neut % (Auto) 83.1 H Lymph % (Auto) 6.0 L [place] % (Auto) 10.5 H Eos % (Auto) 0.0 Baso % (Auto) 0.4 Neut # (Auto) 10.1 H Lymph # (Auto) 0.7 L [place] # (Auto) 1.3 H Eos # (Auto) 0.0 Baso # (Auto) 0.1 WBC Differential Manual diff final Seg Neuts % (Manual) 74 H Band Neuts % (Manual) 17 H Lymphocytes % (Manual) 5 L Monocytes % (Manual) 4 Basophils % (Manual) Metamyelocytes % (Man) Myelocytes % (Man) Abs Neuts (Manual) 11.0 H Differential Comment . Platelet Estimate Low L Platelet Morphology Normal [place] Cells PT INR APTT Fibrinogen Puncture Site Patient Temperature O2 Saturation ABG pH ABG pCO2 ABG pO2 ABG HCO3 ABG O2 Content ABG Base Excess ABG Methemoglobin Hemoglobin Carboxyhemoglobin O2 Delivery Device Vent Setting Inspired O2 Critical Value POC Sodium Sodium 153 H POC Potassium Potassium 3.8 POC Chloride Chloride 114 H Carbon Dioxide 31.6 Anion Gap 7 POC BUN BUN 14 Creatinine 0.89 POC Creatinine Estimated GFR 63 L POC Glucose Random Glucose 176 H Calcium 6.2 L* Calcium Adj for Albumin 8.4 L Phosphorus Magnesium Total Bilirubin AST ALT Alkaline Phosphatase Total Protein Albumin 1.2 L D Urine Color Urine Clarity Urine pH Ur Specific [place] Urine Protein Urine Glucose (UA) Urine Ketones Urine Occult Blood Urine Nitrate Urine Bilirubin Urine Urobilinogen Ur Leukocyte Esterase Urine RBC Urine WBC Ur Squamous Epith Cells Micro UA Comment Ur Microscopic Review Urine Culture Comments Nasal Screen MRSA (PCR) Urine Opiates Screen Ur Barbiturates Screen Ur Amphetamines Screen U Benzodiazepines Scrn Urine Cocaine Screen U Cannabinoids Screen Serum Alcohol Blood Type Antibody Screen MTS Gel Crossmatch See Detail Blood Bank Comment Bld Prod Order Comment 04/17/18 04/17/18 04/17/18 06:33 07:05 08:05 WBC RBC Hgb 7.0 L D POC Hgb (Calc) Hct 19.7 L* POC Hct MCV MCH MCHC RDW Plt Count MPV Prelim Diff (Auto) Neut % (Auto) Lymph % (Auto) [place] % (Auto) Eos % (Auto) Baso % (Auto) Neut # (Auto) Lymph # (Auto) [place] # (Auto) Eos # (Auto) Baso # (Auto) WBC Differential Seg Neuts % (Manual) Band Neuts % (Manual) Lymphocytes % (Manual) Monocytes % (Manual) Basophils % (Manual) Metamyelocytes % (Man) Myelocytes % (Man) Abs Neuts (Manual) Differential Comment Platelet Estimate Platelet Morphology [place] Cells PT INR APTT Fibrinogen 119 L Puncture Site Patient Temperature O2 Saturation ABG pH ABG pCO2 ABG pO2 ABG HCO3 ABG O2 Content ABG Base Excess ABG Methemoglobin Hemoglobin Carboxyhemoglobin O2 Delivery Device Vent Setting Inspired O2 Critical Value POC Sodium Sodium POC Potassium Potassium POC Chloride Chloride Carbon Dioxide Anion Gap POC BUN BUN Creatinine POC Creatinine Estimated GFR POC Glucose Random Glucose Calcium Calcium Adj for Albumin Phosphorus Magnesium Total Bilirubin AST ALT Alkaline Phosphatase Total Protein Albumin Urine Color Urine Clarity Urine pH Ur Specific [place] Urine Protein Urine Glucose (UA) Urine Ketones Urine Occult Blood Urine Nitrate Urine Bilirubin Urine Urobilinogen Ur Leukocyte Esterase Urine RBC Urine WBC Ur Squamous Epith Cells Micro UA Comment Ur Microscopic Review Urine Culture Comments Nasal Screen MRSA (PCR) Urine Opiates Screen Ur Barbiturates Screen Ur Amphetamines Screen U Benzodiazepines Scrn Urine Cocaine Screen U Cannabinoids Screen Serum Alcohol Blood Type Antibody Screen MTS Gel Crossmatch Blood Bank Comment Bld Prod Order Comment 04/17/18 04/17/18 04/17/18 08:50 10:13 10:19 WBC RBC Hgb POC Hgb (Calc) Hct POC Hct MCV MCH MCHC RDW Plt Count MPV Prelim Diff (Auto) Neut % (Auto) Lymph % (Auto) [place] % (Auto) Eos % (Auto) Baso % (Auto) Neut # (Auto) Lymph # (Auto) [place] # (Auto) Eos # (Auto) Baso # (Auto) WBC Differential Seg Neuts % (Manual) Band Neuts % (Manual) Lymphocytes % (Manual) Monocytes % (Manual) Basophils % (Manual) Metamyelocytes % (Man) Myelocytes % (Man) Abs Neuts (Manual) Differential Comment Platelet Estimate Platelet Morphology [place] Cells PT INR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
[2018-04-17 17:48] LABS: Hematocrit 23.8 % (35.0-46.0); Hemoglobin 8.3 gm/dL (11.6-15.3); Mean Corpuscular HGB Conc 34.9 % (32.0-36.0); Mean Corpuscular Hemoglobin 28.7 pg (27.0-34.0); Mean Corpuscular Volume 82.4 fL (80.0-100.0); Mean Platelet Volume 7.3 fL (7.0-11.0); Platelet Count 52 th/mm3 (150-450); Red Blood Count 2.89 mil/mm3 (4.00-5.30); Red Cell Distribution Width 20.8 % (11.6-17.2); White Blood Count 6.3 th/mm3 (4.0-11.0)
[2018-04-17 18:05] LABS: ABG Base Excess 0.2 mmol/L (-2-2); ABG PCO2 39 mmHg (38-42); ABG PO2 165 mmHg (61-120)
[2018-04-17 18:21] LABS: Calcium 6.8 mg/dL (8.5-10.1); Carbon Dioxide 25.7 meq/L (21.0-32.0); Potassium 3.8 meq/L (3.5-5.1)
[2018-04-17 18:49] LABS: Albumin 2.1 g/dL (3.4-5.0); Calcium-Albumin Corrected 8.3 mg/dL (8.5-10.1)
[2018-04-17 21:28] LABS: Baso % (Auto) 0.3 % (0.0-2.0); Eos % (Auto) 0.1 % (0.0-4.0); Hematocrit 21.3 % (35.0-46.0); Hemoglobin 7.6 gm/dL (11.6-15.3); Lymph % (Auto) 17.8 % (9.0-44.0); Mean Corpuscular HGB Conc 35.6 % (32.0-36.0); Mean Corpuscular Hemoglobin 28.6 pg (27.0-34.0); Mean Corpuscular Volume 80.3 fL (80.0-100.0); Mean Platelet Volume 7.7 fL (7.0-11.0); Mono # (Auto) 0.6 th/mm3 (0.0-0.9); Mono % (Auto) 9.9 % (0.0-8.0); Neut # (Auto) 4.2 th/mm3 (1.8-7.7); Neut % (Auto) 71.9 % (16.0-70.0); Platelet Count 49 th/mm3 (150-450); Red Blood Count 2.65 mil/mm3 (4.00-5.30); Red Cell Distribution Width 20.6 % (11.6-17.2); White Blood Count 5.9 th/mm3 (4.0-11.0)
[2018-04-17 22:56] LABS: Dohle Bodies Present; Lymphocytes 7 % (9-44); Metamyelocytes 1 % (0-1); Monocytes 2 % (0-8); Platelet Morphology Normal (Normal)
[2018-04-18] MEDS: Oral Hygiene Kit OROPHARYNG SCH ×4 (00:30→16:15)
[2018-04-18] MEDS: Insulin NovoLOG Aspart Correctional Sugar Inj SQ SCH ×4 (00:30→17:13)
[2018-04-18 03:42] LABS: Baso % (Auto) 0.4 % (0.0-2.0); Eos % (Auto) 0.2 % (0.0-4.0); Hemoglobin 7.1 gm/dL (11.6-15.3); Lymph % (Auto) 14.7 % (9.0-44.0); Mean Corpuscular Hemoglobin 28.5 pg (27.0-34.0); Mean Corpuscular Volume 81.4 fL (80.0-100.0); Mean Platelet Volume 8.1 fL (7.0-11.0); Mono # (Auto) 0.6 th/mm3 (0.0-0.9); Mono % (Auto) 9.3 % (0.0-8.0); Neut # (Auto) 5.2 th/mm3 (1.8-7.7); Neut % (Auto) 75.4 % (16.0-70.0); Platelet Count 59 th/mm3 (150-450); Red Cell Distribution Width 20.8 % (11.6-17.2); White Blood Count 6.9 th/mm3 (4.0-11.0)
[2018-04-18 03:49] LABS: Hematocrit 20.4 % (35.0-46.0)
[2018-04-18 04:12] LABS: Albumin 1.9 g/dL (3.4-5.0); Calcium 6.8 mg/dL (8.5-10.1); Carbon Dioxide 27.2 meq/L (21.0-32.0); Potassium 3.7 meq/L (3.5-5.1); Total Protein 3.9 g/dL (6.4-8.2)
--- NOTE | 2018-04-18 04:21 | XR ---
EXAM DATE: 04/18/2018 4:13 AM EST AGE/SEX: 67 years / Female INDICATIONS: Shortness of breath. CLINICAL DATA: This is the patient's subsequent encounter. Patient reports that signs and symptoms h ave been present for 3 days and indicates a pain score of 9/10. MEDICAL/SURGICAL HISTORY: Non-responsive. Non-responsive. COMPARISON: C, CHEST 1V SINGLE AP, 04/16/2018. . FINDINGS: The ET tube and NG tube are well placed. There is an aortic stent graft seen in the proximal descendi ng thoracic aorta. The heart size is normal. This increased density at the bases being worse on the l eft. There is silhouetting the left hemidiaphragm. CONCLUSION: Bibasilar areas of consolidation or atelectasis being worse on the left. Electronically signed by: Ganesh Flores MD Board Certified Radiologist 04/18/2018 4:20 AM EST
[2018-04-18] MEDS: Chlorhexidine Gluconate 2% 1 Pack (2 Cloths) TOPICAL SCH (04:59)
[2018-04-18 05:38] LABS: Eosinophils 1 % (0-4); Lymphocytes 11 % (9-44)
[2018-04-18 05:39] LABS: Acanthocytes Occ; Platelet Morphology Normal (Normal)
[2018-04-18 05:45] LABS: ABG Base Excess 1.6 mmol/L (-2-2); ABG PCO2 37 mmHg (38-42); ABG PO2 175 mmHg (61-120)
[2018-04-18] MEDS: Midazolam 100 MG/100 ML Inj 100 MG/100 ML BAG IV.CONT PRN (06:31)
[2018-04-18] MEDS ORDERED: Diatrizoate Meglum/Diatrizoate Sod Liq 9 ML UDC PO ONE (08:20)
[2018-04-18] MEDS: Docusate Sodium 100 MG Capsule PO SCH ×2 (08:38→22:01)
[2018-04-18] MEDS: Chlorhexidine 0.12% Oral Kit 15 ML UDC OROPHARYNG SCH ×2 (08:39→19:45)
[2018-04-18] MEDS ORDERED: Albumin Human 5% Inj 500 ML IV.SIG ONE (09:10)
[2018-04-18 09:27] LABS: Hematocrit 23.8 % (35.0-46.0); Hemoglobin 8.7 gm/dL (11.6-15.3)
[2018-04-18] MEDS: Propofol 1000 mg/100 ml Inj 1,000 MG/100 ML BOTTLE IV.CONT PRN (09:33)
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
[2018-04-18] MEDS: Norepinephrine Inj 4 MG in Sodium Chlor 0.9% Inj 246 ML IV.SIG PRN (10:07)
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
[2018-04-18] MEDS: Vasopressin Inj 40 UNIT in Dextrose 5% in Water Inj 98 ML IV.CONT PRN ×2 (13:18)
--- NOTE | 2018-04-18 16:07 | P.PNVS ---
Subjective Subjective/Hospital Course: 67-year-old female status post thoracic aortic aneurysm disruption and endovascular aortic thoracic stent placement Postoperatively patient remained relatively stable however with continuous bleeding into the right gluteal soft tissue spaces Most of the bleeding here is self-contained however there was a active bleeding blush and patient was taken to the endovascular lab / underwent embolization of a branch of the superior gluteal artery with complete cessation of bleeding Patient remains intubated ventilated Groin puncture sites are clean Patient has excellent distal pulses in both arms and legs Large hematoma of the right gluteal and hip area from soft tissue hemorrhage. The hematoma will eventually coalesce into a fluctuant collection and then it can be drained in the OR electively Until then no further therapy is necessary for the same 04/18/2018 Patient is hemodynamically now stable Gluteal artery branch was embolized yesterday in radiology department and since then patient is holding the hemoglobin Today hemoglobin 8.7 g/dL Thoracic stent in place At this point patient will need 3-month follow-up chest CT for the thoracic stent but in the meantime once the right gluteal hematoma liquefies I will drain it in the operating room, likely next week Bilateral good distal pulses no intestinal or peripheral ischemia Agree with ICU management and nothing to add from vascular point Objective Vital Signs / I&O: Vital Signs 04/17/18 16:15 04/17/18 16:30 04/17/18 16:45 Temperature 97.7 F 97.9 F 98.1 F Pulse Rate 96 H 92 H 90 Respiratory Rate 16 16 16 Blood Pressure Pulse Oximetry 100 100 100 04/17/18 17:00 04/17/18 17:15 04/17/18 17:30 Temperature 98.1 F 98.2 F 98.4 F Pulse Rate 93 H 91 H 90 Respiratory Rate 16 16 16 Blood Pressure Pulse Oximetry 100 100 100 04/17/18 17:39 04/17/18 17:45 04/17/18 18:00 Temperature 98.4 F 98.8 F Pulse Rate 93 H 91 H 90 Respiratory Rate 16 16 Blood Pressure Pulse Oximetry 100 100 04/17/18 18:15 04/17/18 18:30 04/17/18 18:45 Temperature 98.8 F 99.0 F 99.1 F Pulse Rate 89 90 93 H Respiratory Rate 16 16 16 Blood Pressure Pulse Oximetry 100 100 100 04/17/18 19:00 04/17/18 19:15 04/17/18 19:29 Temperature 99.3 F 99.3 F Pulse Rate 94 H 95 H 94 H Respiratory Rate 16 16 16 Blood Pressure Pulse Oximetry 100 100 100 04/17/18 19:30 04/17/18 19:45 04/17/18 20:00 Temperature 99.5 F 99.5 F 99.5 F Pulse Rate 94 H 95 H 100 H Respiratory Rate 16 16 16 Blood Pressure Pulse Oximetry 100 100 100 04/17/18 20:15 04/17/18 20:30 04/17/18 20:45 Temperature 99.5 F 99.5 F 99.5 F Pulse Rate 103 H 104 H 103 H Respiratory Rate 16 16 16 Blood Pressure Pulse Oximetry 100 100 100 04/17/18 21:00 04/17/18 21:15 04/17/18 21:18 Temperature 99.5 F 99.5 F Pulse Rate 104 H 101 H 102 H Respiratory Rate 16 16 Blood Pressure Pulse Oximetry 100 100 04/17/18 21:30 04/17/18 21:45 04/17/18 22:00 Temperature 99.5 F 99.5 F 99.5 F Pulse Rate 100 H 102 H 101 H Respiratory Rate 16 16 16 Blood Pressure Pulse Oximetry 100 100 100 04/17/18 22:15 04/17/18 22:30 04/17/18 22:45 Temperature 99.5 F 99.5 F 99.5 F Pulse Rate 101 H 102 H 105 H Respiratory Rate 16 16 16 Blood Pressure Pulse Oximetry 100 100 100 04/17/18 23:00 04/17/18 23:15 04/17/18 23:18 Temperature 99.3 F 99.3 F Pulse Rate 106 H 107 H Respiratory Rate 16 16 16 Blood Pressure Pulse Oximetry 100 100 100 04/17/18 23:30 04/17/18 23:45 04/18/18 00:00 Temperature 99.3 F 99.3 F 99.3 F Pulse Rate 106 H 105 H 103 H Respiratory Rate 16 16 16 Blood Pressure Pulse Oximetry 100 100 100 04/18/18 00:15 04/18/18 00:30 04/18/18 00:45 Temperature 99.3 F 99.5 F 99.5 F Pulse Rate 105 H 108 H 105 H Respiratory Rate 29 H 12 16 Blood Pressure Pulse Oximetry 100 100 100 04/18/18 01:00 04/18/18 01:15 04/18/18 01:30 Temperature 99.5 F 99.3 F 99.3 F Pulse Rate 99 H 98 H 97 H Respiratory Rate 16 16 16 Blood Pressure Pulse Oximetry 100 100 100 04/18/18 01:45 04/18/18 02:00 04/18/18 02:15 Temperature 99.3 F 99.1 F 99.1 F Pulse Rate 98 H 100 H 97 H Respiratory Rate 16 16 16 Blood Pressure Pulse Oximetry 100 100 100 04/18/18 02:30 04/18/18 02:45 04/18/18 03:00 Temperature 99.1 F 99.0 F 99.0 F Pulse Rate 100 H 98 H 100 H Respiratory Rate 16 16 16 Blood Pressure Pulse Oximetry 100 100 100 04/18/18 03:15 04/18/18 03:30 04/18/18 03:31 Temperature 99.0 F 99.0 F Pulse Rate 101 H 95 H 96 H Respiratory Rate 16 16 17 Blood Pressure Pulse Oximetry 100 100 99 04/18/18 03:45 04/18/18 04:00 04/18/18 04:15 Temperature 99.1 F 99.1 F 99.1 F Pulse Rate 100 H 98 H 98 H Respiratory Rate 16 16 16 Blood Pressure Pulse Oximetry 100 100 100 04/18/18 04:30 04/18/18 04:45 04/18/18 04:54 Temperature 99.1 F 99.1 F 99.1 F Pulse Rate 95 H 93 H 96 H Respiratory Rate 16 16 16 Blood Pressure Pulse Oximetry 100 100 04/18/18 05:00 04/18/18 05:07 04/18/18 05:15 Temperature 99.1 F 99.1 F 99.0 F Pulse Rate 98 H 94 H 93 H Respiratory Rate 16 16 16 Blood Pressure 115/38 L Pulse Oximetry 100 100 100 04/18/18 05:30 04/18/18 05:45 04/18/18 06:00 Temperature 99.0 F 99.0 F 98.8 F Pulse Rate 90 87 98 H Respiratory Rate 16 17 16 Blood Pressure Pulse Oximetry 100 100 100 04/18/18 06:15 04/18/18 06:30 04/18/18 06:45 Temperature 99.0 F 99.0 F 99.0 F Pulse Rate 86 81 80 Respiratory Rate 16 16 16 Blood Pressure Pulse Oximetry 100 100 100 04/18/18 07:00 04/18/18 07:15 04/18/18 07:30 Temperature 99.0 F 99.1 F 99.1 F Pulse Rate 79 79 87 Respiratory Rate 16 16 16 Blood Pressure Pulse Oximetry 100 100 100 04/18/18 07:45 04/18/18 07:46 04/18/18 08:00 Temperature 99.1 F 99.1 F Pulse Rate 81 81 81 Respiratory Rate 17 16 16 Blood Pressure Pulse Oximetry 100 100 100 04/18/18 08:15 04/18/18 08:30 04/18/18 08:45 Temperature 99.3 F 99.3 F 99.3 F Pulse Rate 81 83 82 Respiratory Rate 16 16 16 Blood Pressure Pulse Oximetry 100 100 100 04/18/18 09:00 04/18/18 09:15 04/18/18 09:30 Temperature 99.3 F 99.1 F 99.1 F Pulse Rate 75 83 82 Respiratory Rate 16 16 16 Blood Pressure Pulse Oximetry 100 100 100 04/18/18 09:45 04/18/18 10:00 04/18/18 10:15 Temperature 99.1 F 99.1 F 99.0 F Pulse Rate 85 83 82 Respiratory Rate 16 16 16 Blood Pressure Pulse Oximetry 100 100 100 04/18/18 10:30 04/18/18 10:45 04/18/18 11:00 Temperature 99.0 F 98.8 F 98.8 F Pulse Rate 80 81 84 Respiratory Rate 16 16 18 Blood Pressure Pulse Oximetry 100 100 100 04/18/18 11:15 04/18/18 11:30 04/18/18 11:32 Temperature 99.1 F Pulse Rate 98 H 106 H Respiratory Rate 24 18 Blood Pressure Pulse Oximetry 100 100 04/18/18 11:45 04/18/18 11:50 04/18/18 12:00 Temperature 99.1 F 99.1 F Pulse Rate 88 70 Respiratory Rate 16 16 16 Blood Pressure Pulse Oximetry 100 100 100 04/18/18 12:15 04/18/18 12:30 04/18/18 12:45 Temperature 99.1 F 99.1 F 99.1 F Pulse Rate 79 76 74 Respiratory Rate 16 16 16 Blood Pressure Pulse Oximetry 100 100 100 04/18/18 14:00 04/18/18 15:23 Temperature Pulse Rate 77 76 Respiratory Rate 16 Blood Pressure Pulse Oximetry 100 Intake & Output 04/17/18 04/18/18 04/18/18 18:59 06:59 18:59 Intake Total 9582 / 9582 3862 / 3862 1609 / 1609 Output Total 800 / 800 750 / 750 Balance 8782 / 8782 3112 / 3112 1609 / 1609 Weight 109 kg Intake: IV 6395 / 6395 2200 / 2200 1609 / 1609 LR 1000 mL Inj 1,000 ML @ 100 1645 / 1645 2000 / 2000 1000 / 1000 mls/hr IV.CONT .Q10H CRISTHIAN Rx#: [id number] Versed Inj 100 mg In 100 ml @ 2 100 / 100 9 / 9 MG/HR 2 mls/hr IV.CONT TITRATE PRN Rx#:[id number] NS Inj 1,000 ML @ 100 mls/hr IV 0 / 0 .CONT .Q10H CRISTHIAN Rx#:[id number] NS Inj 500 ML @ Wide Open IV. 500 / 500 CONT .Q0M ONE Rx#:[id number] Pitressin Inj 40 UNIT In D5W 100 / 100 100 / 100 Inj 98 ML @ 0.01 UNITS/MIN 1.5 mls/hr IV.CONT TITRATE PRN Rx#: [id number] Buminate 5% Inj 500 ML @ 250 500 / 500 mls/hr IV.SIG ONCE ONE Rx#: [id number] Alburx 5% Inj 500 ML @ 250 mls/ 500 / 500 hr IV.SIG ONCE ONE Rx#:[id number] LR 1000 mL Inj 1,000 ML @ Wide 3000 / 3000 Open IV.SIG BOLUS ONE Rx#: [id number] Levophed Inj 4 MG In NS Inj 246 500 / 500 ML @ 2 MCG/MIN 7.5 mls/hr IV. SIG TITRATE PRN Rx#:[id number] NS Inj 250 ML @ 15 mls/hr IV. 250 / 250 SIG ONCE CRISTHIAN Rx#:[id number] Other 250 / 250 Rbc As-3 Leukoreduced Unit 250 / 250 [id number] Intake (Blood Product) Amt 3187 / 3187 1412 / 1412 Plasma Thawed 5 Day Acda Unit 234 / 234 [id number] Plasma Thawed 5 Day Acda Unit 222 / 222 [id number] Plasma Thawed 5 Day Cp2d Unit 307 / 307 [id number] Plasma Thawed 5 Day Cp2d Unit 338 / 338 [id number] Plt Pheresis A Leukored Pas 287 / 287 Unit [id number] Plt Pheresis C Leukored Pas 199 / 199 Unit [id number] Plt Pheresis C Leukoreduced 212 / 212 Unit [id number] Rbc As-3 Leukoreduced Unit 400 / 400 [id number] Rbc As-3 Leukoreduced Unit 400 / 400 [id number] Rbc As-3 Leukoreduced Unit 400 / 400 [id number] Rbc As-3 Leukoreduced Unit 400 / 400 [id number] Rbc As-3 Leukoreduced Unit 400 / 400 [id number] Rbc As-3 Leukoreduced Unit 400 / 400 [id number] Rbc As-3 Leukoreduced Unit 400 / 400 [id number] Output: Stool 0 / 0 Urine Amount (Catheter) 700 / 700 550 / 550 Indwelling Temp Sensing 700 / 700 550 / 550 Catheter Gastric Drainage 100 / 100 200 / 200 Orogastric Tube 100 / 100 200 / 200 Other: # Bowel Movements 0 Laboratory Results - last 24 hr 04/16/18 04/16/18 04/17/18 19:17 20:39 08:50 WBC RBC Hgb Hct MCV MCH MCHC RDW Plt Count MPV Prelim Diff (Auto) Neut % (Auto) Lymph % (Auto) Bryan % (Auto) Eos % (Auto) Baso % (Auto) Neut # (Auto) Lymph # (Auto) Bryan # (Auto) Eos # (Auto) Baso # (Auto) WBC Differential Seg Neuts % (Manual) Band Neuts % (Manual) Lymphocytes % (Manual) Monocytes % (Manual) Eosinophils % (Manual) Basophils % (Manual) Metamyelocytes % (Man) Abs Neuts (Manual) Differential Comment Dohle Bodies Platelet Estimate Platelet Morphology Acanthocytes (Spur) Puncture Site Patient Temperature O2 Saturation ABG pH ABG pCO2 ABG pO2 ABG HCO3 ABG O2 Content ABG Base Excess ABG Methemoglobin Hemoglobin Carboxyhemoglobin O2 Delivery Device Vent Setting Inspired O2 Critical Value Sodium Potassium Chloride Carbon Dioxide Anion Gap BUN Creatinine Estimated GFR POC Glucose Random Glucose Calcium Calcium Adj for Albumin Total Bilirubin AST ALT Alkaline Phosphatase Total Protein Albumin MTS Gel Crossmatch See Detail See Detail See Detail Bld Prod Order Comment 04/17/18 04/17/18 04/17/18 10:13 17:30 17:30 WBC 6.3 RBC 2.89 L Hgb 8.3 L Hct 23.8 L MCV 82.4 D MCH 28.7 MCHC 34.9 RDW 20.8 H D Plt Count 52 L MPV 7.3 Prelim Diff (Auto) Neut % (Auto) Lymph % (Auto) Bryan % (Auto) Eos % (Auto) Baso % (Auto) Neut # (Auto) Lymph # (Auto) Bryan # (Auto) Eos # (Auto) Baso # (Auto) WBC Differential Seg Neuts % (Manual) Band Neuts % (Manual) Lymphocytes % (Manual) Monocytes % (Manual) Eosinophils % (Manual) Basophils % (Manual) Metamyelocytes % (Man) Abs Neuts (Manual) Differential Comment Dohle Bodies Platelet Estimate Platelet Morphology Acanthocytes (Spur) Puncture Site Patient Temperature O2 Saturation ABG pH ABG pCO2 ABG pO2 ABG HCO3 ABG O2 Content ABG Base Excess ABG Methemoglobin Hemoglobin Carboxyhemoglobin O2 Delivery Device Vent Setting Inspired O2 Critical Value Sodium 147 H Potassium 3.8 Chloride 112 H Carbon Dioxide 25.7 Anion Gap 9 BUN 17 Creatinine 0.92 Estimated GFR 61 L POC Glucose Random Glucose 144 H Calcium 6.8 L* Calcium Adj for Albumin 8.3 L Total Bilirubin AST ALT Alkaline Phosphatase Total Protein Albumin 2.1 L D MTS Gel Crossmatch See Detail Bld Prod Order Comment 04/17/18 04/17/18 04/17/18 17:50 18:23 21:03 WBC 5.9 RBC 2.65 L Hgb 7.6 L Hct 21.3 L MCV 80.3 MCH 28.6 MCHC 35.6 RDW 20.6 H Plt Count 49 L MPV 7.7 Prelim Diff (Auto) Slide review pending Neut % (Auto) 71.9 H Lymph % (Auto) 17.8 Bryan % (Auto) 9.9 H Eos % (Auto) 0.1 Baso % (Auto) 0.3 Neut # (Auto) 4.2 Lymph # (Auto) 1.0 Bryan # (Auto) 0.6 Eos # (Auto) 0.0 Baso # (Auto) 0.0 WBC Differential Manual diff final Seg Neuts % (Manual) 81 H Band Neuts % (Manual) 9 H Lymphocytes % (Manual) 7 L Monocytes % (Manual) 2 Eosinophils % (Manual) Basophils % (Manual) Metamyelocytes % (Man) 1 Abs Neuts (Manual) 5.4 Differential Comment . Dohle Bodies Present H Platelet Estimate Low L Platelet Morphology Normal Acanthocytes (Spur) Puncture Site Art line Patient Temperature 98.6 O2 Saturation 96 ABG pH 7.41 ABG pCO2 39 ABG pO2 165 H ABG HCO3 24 ABG O2 Content 11.3 L ABG Base Excess 0.2 ABG Methemoglobin 1.6 Hemoglobin 8.1 L Carboxyhemoglobin 1.7 O2 Delivery Device Ventilator Vent Setting Prvc/16/550/1.0/+5 Inspired O2 35 Critical Value No Sodium Potassium Chloride Carbon Dioxide Anion Gap BUN Creatinine Estimated GFR POC Glucose 145 H Random Glucose Calcium Calcium Adj for Albumin Total Bilirubin AST ALT Alkaline Phosphatase Total Protein Albumin MTS Gel Crossmatch Bld Prod Order Comment 04/18/18 04/18/18 04/18/18 00:27 03:30 03:30 WBC 6.9 RBC 2.50 L Hgb 7.1 L Hct 20.4 L* MCV 81.4 MCH 28.5 MCHC 35.0 RDW 20.8 H Plt Count 59 L MPV 8.1 Prelim Diff (Auto) Slide review pending Neut % (Auto) 75.4 H Lymph % (Auto) 14.7 Bryan % (Auto) 9.3 H Eos % (Auto) 0.2 Baso % (Auto) 0.4 Neut # (Auto) 5.2 Lymph # (Auto) 1.0 Bryan # (Auto) 0.6 Eos # (Auto) 0.0 Baso # (Auto) 0.0 WBC Differential Manual diff final Seg Neuts % (Manual) 58 Band Neuts % (Manual) 29 H Lymphocytes % (Manual) 11 Monocytes % (Manual) Eosinophils % (Manual) 1 Basophils % (Manual) 1 Metamyelocytes % (Man) Abs Neuts (Manual) 6.0 Differential Comment . Dohle Bodies Platelet Estimate Low L Platelet Morphology Normal Acanthocytes (Spur) Occ H Puncture Site Patient Temperature O2 Saturation ABG pH ABG pCO2 ABG pO2 ABG HCO3 ABG O2 Content ABG Base Excess ABG Methemoglobin Hemoglobin Carboxyhemoglobin O2 Delivery Device Vent Setting Inspired O2 Critical Value Sodium 147 H Potassium 3.7 Chloride 112 H Carbon Dioxide 27.2 Anion Gap 8 BUN 19 H Creatinine 0.81 Estimated GFR 71 L POC Glucose 116 H Random Glucose 135 H Calcium 6.8 L* Calcium Adj for Albumin 8.5 Total Bilirubin 0.8 AST 57 H ALT 30 Alkaline Phosphatase 44 L Total Protein 3.9 L Albumin 1.9 L MTS Gel Crossmatch Bld Prod Order Comment 04/18/18 04/18/18 04/18/18 04:12 04:34 05:32 WBC RBC Hgb Hct MCV MCH MCHC RDW Plt Count MPV Prelim Diff (Auto) Neut % (Auto) Lymph % (Auto) Bryan % (Auto) Eos % (Auto) Baso % (Auto) Neut # (Auto) Lymph # (Auto) Bryan # (Auto) Eos # (Auto) Baso # (Auto) WBC Differential Seg Neuts % (Manual) Band Neuts % (Manual) Lymphocytes % (Manual) Monocytes % (Manual) Eosinophils % (Manual) Basophils % (Manual) Metamyelocytes % (Man) Abs Neuts (Manual) Differential Comment Dohle Bodies Platelet Estimate Platelet Morphology Acanthocytes (Spur) Puncture Site Desire Patient Temperature 98.6 O2 Saturation 97 ABG pH 7.45 H ABG pCO2 37 L ABG pO2 175 H ABG HCO3 25 ABG O2 Content 12.4 ABG Base Excess 1.6 ABG Methemoglobin 1.5 Hemoglobin 8.8 L Carboxyhemoglobin 1.3 O2 Delivery Device See comments Vent Setting Inspired O2 35 Critical Value No Sodium Potassium Chloride Carbon Dioxide Anion Gap BUN Creatinine Estimated GFR POC Glucose Random Glucose Calcium Calcium Adj for Albumin Total Bilirubin AST ALT Alkaline Phosphatase Total Protein Albumin MTS Gel Crossmatch See Detail See Detail Bld Prod Order Comment 04/18/18 04/18/18 09:03 11:56 WBC RBC Hgb 8.7 L Hct 23.8 L MCV MCH MCHC RDW Plt Count MPV Prelim Diff (Auto) Neut % (Auto) Lymph % (Auto) Bryan % (Auto) Eos % (Auto) Baso % (Auto) Neut # (Auto) Lymph # (Auto) Bryan # (Auto) Eos # (Auto) Baso # (Auto) WBC Differential Seg Neuts % (Manual) Band Neuts % (Manual) Lymphocytes % (Manual) Monocytes % (Manual) Eosinophils % (Manual) Basophils % (Manual) Metamyelocytes % (Man) Abs Neuts (Manual) Differential Comment Dohle Bodies Platelet Estimate Platelet Morphology Acanthocytes (Spur) Puncture Site Patient Temperature O2 Saturation ABG pH ABG pCO2 ABG pO2 ABG HCO3 ABG O2 Content ABG Base Excess ABG Methemoglobin Hemoglobin Carboxyhemoglobin O2 Delivery Device Vent Setting Inspired O2 Critical Value Sodium Potassium Chloride Carbon Dioxide Anion Gap BUN Creatinine Estimated GFR POC Glucose 108 Random Glucose Calcium Calcium Adj for Albumin Total Bilirubin AST ALT Alkaline Phosphatase Total Protein Albumin MTS Gel Crossmatch Bld Prod Order Comment Impressions Aneurysm Repair 04/16/18 00:00 CONCLUSION: 1. Uncomplicated thoracic aortic endograft placement for treatment of traumatic aortic injury. Chest X-Ray 04/16/18 19:17 CONCLUSION: No active disease. Pelvis X-Ray 04/16/18 19:17 CONCLUSION: No acute findings. Abdomen/Pelvis CT 04/16/18 19:21 CONCLUSION: 1. Fractures of the right first and second and left third fourth and fifth transverse processes of the lumbar spine. 2. Left sacral ala fracture extending into the left sacroiliac joint. 3. Hemorrhage around the distal descending thoracic aorta and also small amount of retroperitoneal and right psoas hemorrhage. 4. Numerous gallstones. Cervical Spine CT 04/16/18 19:21 CONCLUSION: 1. Negative for cervical spine fracture. Chest CT 04/16/18 19:21 CONCLUSION: 1. Traumatic aortic injury with transected aorta at the junction of the transverse aorta. Findings called to Dr. Vail in the emergency department. 2. Mild lung contusions. Head CT 04/16/18 19:21 CONCLUSION: 1. No acute intracranial abnormalities. . Lumbar Spine CT 04/16/18 19:21 CONCLUSION: 1. Mildly displaced fracture of the left sacral ala extending into the left sacroiliac joint. 2. Multiple transverse process fractures in the lumbar spine as above. There is some associated hemorrhage in the paraspinous region also extending into the retroperitoneum. Thoracic Spine CT 04/16/18 19:21 CONCLUSION: 1. Traumatic aortic injury with transected aorta at the junction of transverse and descending thoracic aorta. There is surrounding mediastinal hematoma. Findings called to Dr. Vali. 8:35 PM. 2. No thoracic body fracture identified. Chest X-Ray 04/16/18 21:12 CONCLUSION: Endotracheal tube and nasogastric tube in good position. Widened mediastinum characteristic of a mediastinal hematoma in patient with history of trauma. Abdomen/Pelvis CT 04/17/18 00:00 CONCLUSION: 1. Enlarging hematoma or some active hemorrhage in the posterior lateral right abdomen and pelvis region in the subcutaneous fat. 2. Persistent areas of hematoma in the retroperitoneum being greater on the right. These were present previously. 3. Diffuse enlargement of the right adrenal gland likely from hemorrhage. This does appear worse when compared to the prior exam. 4. Hazy density seen around the duodenum and pancreatic head regions which could represent injury to these structures. 5. Posterior lung contusions or atelectasis. 6. Aortic stent graft in the descending thoracic aorta. 7. Gallstones. 8. 1.6 cm hypodensity at the inferior aspect of the spleen related to either a pre-existing lesion such as a hemangioma or storm small splenic injury. This is unchanged. 9. Lumbar transverse process fractures and a left sacral fracture. This information concerning the enlarging hematoma in the lateral right abdomen and pelvis subcutaneous fat was called to the floor and relayed to Mago, the patient's nurse. Splenic Arteriogram 04/17/18 00:00 CONCLUSION: 1. Technically successful coil embolization of focal region of active hemorrhage in the inferior spleen. 2. Uneventful prophylactic Gelfoam embolization of right gluteal branches. 3. Technically successful coil embolization of profound active hemorrhage from small unnamed proximal right hypogastric branch. Head CT 04/17/18 05:26 CONCLUSION: 1. No intracranial abnormality is seen. 2. Posterior scalp swelling. . Chest CT 04/17/18 05:28 CONCLUSION: 1. Aortic stent graft successfully covering the previously seen aortic transection. 2. Residual mediastinal hematoma which is unchanged. 3. Mild pericardial fluid. 4. Mild subpleural density/groundglass opacity in the posterior lower lungs bilaterally likely related to atelectasis or contusions. Chest X-Ray 04/18/18 06:00 CONCLUSION: Bibasilar areas of consolidation or atelectasis being worse on the left. Abdomen/Pelvis CT 04/18/18 08:20 CONCLUSION: 1. Post embolization hypodensity in the spleen. No active bleeding noted. 2. Large right-sided gluteal and supragluteal hematomas without evidence of active bleeding post embolization. 3. Stable fluid stranding along the duodenum and pelvic retroperitoneal without evidence of active bleeding or enlargement. 4. Increasing abdominal wall edema characteristic of anasarca. 5. Bibasilar airspace disease and small bilateral effusions. 6. Cholelithiasis. 7. Right common femoral arterial and venous catheters in place. 8. Stable lumbar and sacral fractures.
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
[2018-04-18] MEDS: Pantoprazole Inj 40 MG Vial IV.PUSH SCH (22:12)
[2018-04-19] MEDS: Insulin NovoLOG Aspart Correctional Sugar Inj SQ SCH ×4 (01:26→17:04)
[2018-04-19] MEDS: Oral Hygiene Kit OROPHARYNG SCH ×4 (01:27→15:15)
[2018-04-19] MEDS: fentaNYL 10 mcg/mL Premix Drip 2,500 MCG/250 ML BAG IV.SIG PRN (01:58)
[2018-04-19] MEDS: Chlorhexidine Gluconate 2% 1 Pack (2 Cloths) TOPICAL SCH (03:04)
[2018-04-19] MEDS: Propofol 1000 mg/100 ml Inj 1,000 MG/100 ML BOTTLE IV.CONT PRN ×2 (03:57→15:15)
--- NOTE | 2018-04-19 04:32 | XR ---
EXAM DATE: 04/19/2018 4:28 AM EST AGE/SEX: 67 years / Female INDICATIONS: Respiratory disease. CLINICAL DATA: This is the patient's subsequent encounter. Patient reports that signs and symptoms h ave been present for 4 - 6 days and indicates a pain score of Nonresponsive. MEDICAL/SURGICAL HISTORY: Non-responsive. Non-responsive. COMPARISON: [facility] [place] 1V SINGLE AP, 04/18/2018. . FINDINGS: A single AP supine portable view of the chest was obtained and again demonstrates an endotracheal tub e in place with tip approximately 1 cm above the roland. Nasogastric tube is seen coursing through th e esophagus into the stomach. The heart size appears mildly prominent. An aortic stent graft is again noted in place. There is hazy opacity in the right lung which may represent posterior layering effus ion. The costophrenic angle appears patent. Multiple overlying electrocardiogram leads are again note d. CONCLUSION: No significant change. There is hazy opacity in the right lung which may represent posterior layering effusion. Electronically signed by: Navi Duran MD Board Certified Radiologist 04/19/2018 4:30 AM EST
[2018-04-19 05:01] LABS: Baso % (Auto) 0.2 % (0.0-2.0); Eos % (Auto) 0.3 % (0.0-4.0); Hemoglobin 7.3 gm/dL (11.6-15.3); Lymph # (Auto) 0.4 th/mm3 (1.0-4.8); Lymph % (Auto) 5.7 % (9.0-44.0); Mean Corpuscular HGB Conc 35.6 % (32.0-36.0); Mean Corpuscular Hemoglobin 30.3 pg (27.0-34.0); Mean Corpuscular Volume 85.2 fL (80.0-100.0); Mean Platelet Volume 8.2 fL (7.0-11.0); Mono # (Auto) 0.5 th/mm3 (0.0-0.9); Mono % (Auto) 6.8 % (0.0-8.0); Neut # (Auto) 6.6 th/mm3 (1.8-7.7); Platelet Count 57 th/mm3 (150-450); Red Blood Count 2.42 mil/mm3 (4.00-5.30); Red Cell Distribution Width 19.4 % (11.6-17.2); White Blood Count 7.6 th/mm3 (4.0-11.0)
[2018-04-19 05:19] LABS: Hematocrit 20.7 % (35.0-46.0)
[2018-04-19 05:26] LABS: Calcium 7.2 mg/dL (8.5-10.1); Carbon Dioxide 29.3 meq/L (21.0-32.0); Potassium 3.4 meq/L (3.5-5.1); Total Protein 4.2 g/dL (6.4-8.2)
[2018-04-19 06:14] LABS: ABG PCO2 40 mmHg (38-42); ABG PO2 135 mmHg (61-120)
[2018-04-19] MEDS: Potassium Chlor 40 mEq Premix 40 MEQ/100 ML PIGGYBACK IV.SIG PRN (06:50)
[2018-04-19 07:07] LABS: Platelet Morphology Normal (Normal)
[2018-04-19] MEDS: Chlorhexidine 0.12% Oral Kit 15 ML UDC OROPHARYNG SCH ×2 (09:08→19:55)
[2018-04-19] MEDS: Docusate Sodium 100 MG Capsule PO SCH ×2 (09:08→20:53)
[2018-04-19] MEDS: Vasopressin Inj 40 UNIT in Dextrose 5% in Water Inj 98 ML IV.CONT PRN ×2 (09:08)
[2018-04-19] MEDS ORDERED: Sodium Chlor 0.9% Inj 250 ML IV.SIG SCH (11:00)
[2018-04-19] MEDS: Dextrose 50% in Water 50 ML Vial IV.PUSH PRN (11:32)
--- NOTE | 2018-04-19 14:33 | XR ---
EXAM DATE: 04/19/2018 2:29 PM EST AGE/SEX: 67 years / Female INDICATIONS: Central line placement. CLINICAL DATA: This is the patient's initial encounter. Patient reports that signs and symptoms have been present for 2 days and indicates a pain score of Nonresponsive. MEDICAL/SURGICAL HISTORY: Non-responsive. Non-responsive. COMPARISON: [facility] [place] SING[place] AP[place]/19/2018. . FINDINGS: Borderline cardiomegaly seen. Left lung base opacity is present may be due to a combination of consolidation and or pleural effusion. There is mild haziness in the perivascular structures may represent mild case of pulmonary edema . NG tube is present with tip in the stomach. Left subclavian line is present with tip overlapping the expected region of the SVC. No definite pne umothorax is seen for technique. ET tube is present with tip overlapping approximately 3 above the roland. CONCLUSION: Left lung base opacity is present may be due to a combination of consolidation and or ple ural effusion and probable mild case of pulmonary edema. Electronically signed by: Isac Isaac MD Board Certified Radiologist 04/19/2018 2:32 PM EST
[2018-04-19] MEDS: Dextrose 5%/NaCl 0.45% Inj 1,000 ML IV.SIG SCH (17:04)
[2018-04-19 17:22] LABS: Hematocrit 26.4 % (35.0-46.0); Hemoglobin 9.4 gm/dL (11.6-15.3)
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
[2018-04-19] MEDS ORDERED: fentaNYL Citrate Inj 100 MCG/2 ML Ampul ONE (19:33)
[2018-04-19] MEDS: Pantoprazole Inj 40 MG Vial IV.PUSH SCH (20:59)
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
[2018-04-20] MEDS: Dextrose 50% in Water 50 ML Vial IV.PUSH PRN (00:06)
[2018-04-20] MEDS: Insulin NovoLOG Aspart Correctional Sugar Inj SQ SCH ×5 (01:04→23:41)
[2018-04-20] MEDS: Oral Hygiene Kit OROPHARYNG SCH ×5 (01:04→23:41)
[2018-04-20] MEDS: Dextrose 5%/NaCl 0.45% Inj 1,000 ML IV.SIG SCH ×2 (04:01→12:48)
[2018-04-20] MEDS: Chlorhexidine Gluconate 2% 1 Pack (2 Cloths) TOPICAL SCH (04:02)
[2018-04-20 05:42] LABS: ABG Base Excess 3.1 mmol/L (-2-2); ABG PCO2 40 mmHg (38-42); ABG PO2 137 mmHg (61-120)
--- NOTE | 2018-04-20 06:14 | XR ---
EXAM DATE: 04/20/2018 5:35 AM EST AGE/SEX: 67 years / Female INDICATIONS: Respiratory disease. CLINICAL DATA: This is the patient's subsequent encounter. Patient reports that signs and symptoms h ave been present for 4 - 6 days and indicates a pain score of Nonresponsive. MEDICAL/SURGICAL HISTORY: Non-responsive. Non-responsive. COMPARISON: C, CHEST 1V SINGLE AP, 04/19/2018. . FINDINGS: A single AP semierect portable view of the chest was obtained. The patient is mildly rotated to the l eft. The endotracheal tube remains in place with the tip 1 cm above the roland. Nasogastric tube is a gain seen coursing through the esophagus and stomach. The left subclavian central venous line remains in place. Mild hazy opacity is noted in both lungs. The costophrenic angles remain blunted. The hear t size remains mildly prominent. An aortic stent catheter is noted in place. CONCLUSION: No significant interval change. Electronically signed by: Navi Duran MD Board Certified Radiologist 04/20/2018 6:13 AM EST
[2018-04-20 06:15] LABS: Baso % (Auto) 0.2 % (0.0-2.0); Eos # (Auto) 0.1 th/mm3 (0.0-0.4); Eos % (Auto) 0.9 % (0.0-4.0); Hematocrit 26.7 % (35.0-46.0); Hemoglobin 9.3 gm/dL (11.6-15.3); Lymph # (Auto) 0.5 th/mm3 (1.0-4.8); Lymph % (Auto) 5.3 % (9.0-44.0); Mean Corpuscular HGB Conc 34.8 % (32.0-36.0); Mean Corpuscular Hemoglobin 30.9 pg (27.0-34.0); Mean Corpuscular Volume 88.9 fL (80.0-100.0); Mono # (Auto) 0.9 th/mm3 (0.0-0.9); Mono % (Auto) 9.3 % (0.0-8.0); Neut # (Auto) 8.2 th/mm3 (1.8-7.7); Neut % (Auto) 84.3 % (16.0-70.0); Platelet Count 67 th/mm3 (150-450); White Blood Count 9.8 th/mm3 (4.0-11.0)
[2018-04-20 07:09] LABS: Alanine Aminotransferase 29 U/L (10-53); Albumin 1.8 g/dL (3.4-5.0); Alkaline Phosphatase 60 U/L (45-117); Anion Gap 5 meq/L (5-15); Aspartate Aminotransferase 43 U/L (15-37); Blood Urea Nitrogen 13 mg/dL (7-18); Calcium 7.3 mg/dL (8.5-10.1); Carbon Dioxide 28.4 meq/L (21.0-32.0); Chloride 111 meq/L (98-107); Glomerular Filtration Rate Greater Than 89 mL/min (>89); Glucose,Random 98 mg/dL (74-106); Potassium 3.3 meq/L (3.5-5.1); Sodium 144 meq/L (136-145); Total Protein 4.3 g/dL (6.4-8.2)
[2018-04-20] MEDS: Propofol 1000 mg/100 ml Inj 1,000 MG/100 ML BOTTLE IV.CONT PRN (07:14)
[2018-04-20] MEDS: fentaNYL 10 mcg/mL Premix Drip 2,500 MCG/250 ML BAG IV.SIG PRN (07:15)
[2018-04-20] MEDS: Docusate Sodium 100 MG Capsule PO SCH ×2 (08:53→21:08)
[2018-04-20] MEDS: Chlorhexidine 0.12% Oral Kit 15 ML UDC OROPHARYNG SCH ×2 (08:54→21:08)
[2018-04-20 09:37] LABS: Eosinophils 2 % (0-4); Lymphocytes 5 % (9-44); Metamyelocytes 1 % (0-1); Monocytes 1 % (0-8)
[2018-04-20 09:38] LABS: Platelet Morphology Normal (Normal)
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
[2018-04-20] MEDS: Enoxaparin Inj 40 MG/0.4 ML Syringe SQ SCH (12:46)
[2018-04-20] MEDS: Pantoprazole Inj 40 MG Vial IV.PUSH SCH (21:08)
[2018-04-21] MEDS: Chlorhexidine Gluconate 2% 1 Pack (2 Cloths) TOPICAL SCH (03:16)
[2018-04-21] MEDS: Oral Hygiene Kit OROPHARYNG SCH ×4 (03:16→23:57)
[2018-04-21 03:43] LABS: Baso % (Auto) 0.3 % (0.0-2.0); Eos # (Auto) 0.1 th/mm3 (0.0-0.4); Eos % (Auto) 1.3 % (0.0-4.0); Hematocrit 24.9 % (35.0-46.0); Hemoglobin 8.9 gm/dL (11.6-15.3); Lymph # (Auto) 0.5 th/mm3 (1.0-4.8); Lymph % (Auto) 4.6 % (9.0-44.0); Mean Corpuscular HGB Conc 35.6 % (32.0-36.0); Mean Corpuscular Hemoglobin 31.5 pg (27.0-34.0); Mean Corpuscular Volume 88.4 fL (80.0-100.0); Mono % (Auto) 9.6 % (0.0-8.0); Neut # (Auto) 8.8 th/mm3 (1.8-7.7); Neut % (Auto) 84.2 % (16.0-70.0); Platelet Count 88 th/mm3 (150-450); Red Blood Count 2.82 mil/mm3 (4.00-5.30); Red Cell Distribution Width 17.2 % (11.6-17.2); White Blood Count 10.5 th/mm3 (4.0-11.0)
[2018-04-21 04:22] LABS: Alanine Aminotransferase 29 U/L (10-53); Albumin 1.7 g/dL (3.4-5.0); Alkaline Phosphatase 66 U/L (45-117); Anion Gap 4 meq/L (5-15); Aspartate Aminotransferase 38 U/L (15-37); Blood Urea Nitrogen 13 mg/dL (7-18); Calcium 7.4 mg/dL (8.5-10.1); Carbon Dioxide 30.9 meq/L (21.0-32.0); Chloride 109 meq/L (98-107); Glomerular Filtration Rate Greater Than 89 mL/min (>89); Glucose,Random 129 mg/dL (74-106); Potassium 3.3 meq/L (3.5-5.1); Sodium 144 meq/L (136-145); Total Protein 4.5 g/dL (6.4-8.2)
--- NOTE | 2018-04-21 05:33 | XR ---
EXAM DATE: 04/21/2018 4:56 AM EST AGE/SEX: 67 years / Female INDICATIONS: Respiratory distress. Status post extubation. CLINICAL DATA: This is the patient's subsequent encounter. Patient reports that signs and symptoms h ave been present for 4 - 6 days and indicates a pain score of Nonresponsive. MEDICAL/SURGICAL HISTORY: . Smoker. None. COMPARISON: C, CHEST 1V SINGLE AP, 04/20/2018. . FINDINGS: A single AP semierect portable view of the chest was obtained and demonstrates the patient is status post extubation and removal of the nasogastric tube. The patient is less rotated than on the prior st udy. The heart size is at the upper limits of normal. Postsurgical changes with aortic stent graft in place. Hazy opacity is again noted in both lungs greatest at the lung bases. Both costophrenic angle s appear mildly blunted. The left subclavian central venous line remains in place. The bony thorax is intact. CONCLUSION: 1. Interval extubation and removal of nasogastric tube. 2. Hazy opacity remains in both lungs greatest at the lung bases with apparent small bilateral effus ions. Electronically signed by: Navi Duran MD Board Certified Radiologist 04/21/2018 5:32 AM EST
[2018-04-21] MEDS: Insulin NovoLOG Aspart Correctional Sugar Inj SQ SCH ×4 (06:26→23:56)
[2018-04-21] MEDS ORDERED: Morphine Inj 4 MG/ML Vial IV.PUSH PRN (09:00)
[2018-04-21] MEDS: Docusate Sodium 100 MG Capsule PO SCH ×2 (09:20→20:06)
[2018-04-21] MEDS: Enoxaparin Inj 40 MG/0.4 ML Syringe SQ SCH (10:09)
--- NOTE | 2018-04-21 11:51 | XR ---
EXAM DATE: 04/21/2018 11:31 AM EST AGE/SEX: 67 years / Female INDICATIONS: Evaluate left elbow for trauma CLINICAL DATA: This is the patient's initial encounter. Patient reports that signs and symptoms have been present for 4 - 6 days and indicates a pain score of Nonresponsive. MEDICAL/SURGICAL HISTORY: Non-responsive. Non-responsive. COMPARISON: No prior exams available for comparison. FINDINGS: No definite fractures, or dislocations are identified. No definite lytic or sclerotic les ion is seen. There are hypertrophic changes involving the joints particularly medially chronic in hannah ure. Slight subcutaneous swelling is seen. CONCLUSION: No definite fracture is identified for technique. Electronically signed by: Isac Isaac MD Board Certified Radiologist 04/21/2018 11:50 AM EST
[2018-04-21 12:20] LABS: Eosinophils 1 % (0-4); Lymphocytes 6 % (9-44); Metamyelocytes 1 % (0-1); Monocytes 6 % (0-8); Myelocytes 1 % (0-0)
[2018-04-21 12:21] LABS: Dimorphic RBC Present; Platelet Morphology Normal (Normal)
[2018-04-21] MEDS: Dextrose 5%/NaCl 0.45% Inj 1,000 ML IV.SIG SCH ×2 (13:10→20:08)
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
[2018-04-21] MEDS: Morphine Inj 4 MG/ML Vial IV.PUSH PRN ×3 (15:10→21:49)
[2018-04-21] MEDS: Potassium Chlor 40 mEq Premix 40 MEQ/100 ML PIGGYBACK IV.SIG PRN (20:53)
[2018-04-21] MEDS: Pantoprazole Inj 40 MG Vial IV.PUSH SCH (21:00)
[2018-04-22] MEDS: Oral Hygiene Kit OROPHARYNG SCH ×3 (03:33→21:28)
[2018-04-22] MEDS: Morphine Inj 4 MG/ML Vial IV.PUSH PRN ×4 (03:53→11:48)
[2018-04-22 04:44] LABS: Baso % (Auto) 0.2 % (0.0-2.0); Eos # (Auto) 0.2 th/mm3 (0.0-0.4); Eos % (Auto) 1.6 % (0.0-4.0); Hematocrit 26.2 % (35.0-46.0); Hemoglobin 9.2 gm/dL (11.6-15.3); Lymph # (Auto) 0.5 th/mm3 (1.0-4.8); Lymph % (Auto) 4.8 % (9.0-44.0); Mean Corpuscular HGB Conc 35.2 % (32.0-36.0); Mean Corpuscular Hemoglobin 31.3 pg (27.0-34.0); Mean Corpuscular Volume 88.8 fL (80.0-100.0); Mean Platelet Volume 7.6 fL (7.0-11.0); Mono % (Auto) 8.7 % (0.0-8.0); Neut # (Auto) 9.5 th/mm3 (1.8-7.7); Neut % (Auto) 84.7 % (16.0-70.0); Platelet Count 139 th/mm3 (150-450); Red Blood Count 2.95 mil/mm3 (4.00-5.30); Red Cell Distribution Width 17.4 % (11.6-17.2); White Blood Count 11.3 th/mm3 (4.0-11.0)
[2018-04-22 05:13] LABS: Alanine Aminotransferase 30 U/L (10-53); Albumin 1.7 g/dL (3.4-5.0); Anion Gap 4 meq/L (5-15); Aspartate Aminotransferase 27 U/L (15-37); Blood Urea Nitrogen 15 mg/dL (7-18); Calcium 7.5 mg/dL (8.5-10.1); Carbon Dioxide 31.2 meq/L (21.0-32.0); Chloride 109 meq/L (98-107); Glomerular Filtration Rate Greater Than 89 mL/min (>89); Glucose,Random 87 mg/dL (74-106); Potassium 3.6 meq/L (3.5-5.1); Sodium 144 meq/L (136-145)
[2018-04-22 05:15] LABS: Alkaline Phosphatase 78 U/L (45-117)
[2018-04-22] MEDS: Insulin NovoLOG Aspart Correctional Sugar Inj SQ SCH ×3 (05:28→18:00)
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
[2018-04-22 06:00] LABS: Lymphocytes 5 % (9-44); Monocytes 6 % (0-8)
[2018-04-22 06:01] LABS: Platelet Estimate Normal (Normal); Platelet Morphology Normal (Normal)
[2018-04-22] MEDS: Docusate Sodium 100 MG Capsule PO SCH ×2 (09:14→23:21)
[2018-04-22] MEDS: Enoxaparin Inj 40 MG/0.4 ML Syringe SQ SCH (11:49)
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
[2018-04-22] MEDS: Lidocaine 5% Patch T-DERMAL SCH (17:13)
[2018-04-22] MEDS: Methocarbamol 500 MG Tablet PO SCH ×2 (17:14→22:22)
[2018-04-22] MEDS: Pantoprazole Inj 40 MG Vial IV.PUSH SCH (21:27)
[2018-04-23] MEDS: Insulin NovoLOG Aspart Correctional Sugar Inj SQ SCH ×3 (01:28→14:47)
[2018-04-23] MEDS: Oral Hygiene Kit OROPHARYNG SCH ×4 (01:29→17:25)
[2018-04-23] MEDS: Methocarbamol 500 MG Tablet PO SCH ×3 (05:06→22:19)
[2018-04-23 06:18] LABS: Baso % (Auto) 0.3 % (0.0-2.0); Eos # (Auto) 0.1 th/mm3 (0.0-0.4); Eos % (Auto) 0.8 % (0.0-4.0); Hematocrit 27.2 % (35.0-46.0); Hemoglobin 9.5 gm/dL (11.6-15.3); Lymph # (Auto) 0.6 th/mm3 (1.0-4.8); Lymph % (Auto) 5.8 % (9.0-44.0); Mean Corpuscular HGB Conc 34.8 % (32.0-36.0); Mean Corpuscular Hemoglobin 31.7 pg (27.0-34.0); Mean Corpuscular Volume 90.9 fL (80.0-100.0); Mean Platelet Volume 7.1 fL (7.0-11.0); Mono % (Auto) 9.6 % (0.0-8.0); Neut % (Auto) 83.5 % (16.0-70.0); Platelet Count 183 th/mm3 (150-450); Red Blood Count 2.99 mil/mm3 (4.00-5.30); Red Cell Distribution Width 17.8 % (11.6-17.2); White Blood Count 10.7 th/mm3 (4.0-11.0)
[2018-04-23 06:35] LABS: Anion Gap 5 meq/L (5-15); Blood Urea Nitrogen 15 mg/dL (7-18); Calcium 7.6 mg/dL (8.5-10.1); Carbon Dioxide 28.9 meq/L (21.0-32.0); Chloride 107 meq/L (98-107); Glomerular Filtration Rate Greater Than 89 mL/min (>89); Glucose,Random 87 mg/dL (74-106); Potassium 3.9 meq/L (3.5-5.1); Sodium 141 meq/L (136-145)
[2018-04-23 07:00] LABS: Lymphocytes 2 % (9-44); Metamyelocytes 1 % (0-1); Monocytes 6 % (0-8); Myelocytes 2 % (0-0); Promyelocyte 1 % (0-0); Tallied Nucleated RBC 1 (0-0)
[2018-04-23 07:01] LABS: Platelet Estimate Normal (Normal); Platelet Morphology Normal (Normal)
[2018-04-23] MEDS: Docusate Sodium 100 MG Capsule PO SCH ×2 (08:41→20:48)
[2018-04-23] MEDS: Lidocaine 5% Patch T-DERMAL SCH (08:41)
[2018-04-23] MEDS: Enoxaparin Inj 40 MG/0.4 ML Syringe SQ SCH (11:47)
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
[2018-04-23] MEDS: Pantoprazole Inj 40 MG Vial IV.PUSH SCH (22:19)
[2018-04-24] MEDS: Insulin NovoLOG Aspart Correctional Sugar Inj SQ SCH (00:34)
[2018-04-24] MEDS: Oral Hygiene Kit OROPHARYNG SCH (00:35)
[2018-04-24] MEDS: Methocarbamol 500 MG Tablet PO SCH ×3 (06:35→23:22)
[2018-04-24] MEDS: Lidocaine 5% Patch T-DERMAL SCH (08:24)
[2018-04-24] MEDS: Docusate Sodium 100 MG Capsule PO SCH ×2 (08:25→20:07)
--- NOTE | 2018-04-24 08:26 | XR ---
EXAM DATE: 04/24/2018 7:50 AM EST AGE/SEX: 67 years / Female INDICATIONS: Short of breath. CLINICAL DATA: This is the patient's subsequent encounter. Patient reports that signs and symptoms h ave been present for 1 week and indicates a pain score of Nonresponsive. MEDICAL/SURGICAL HISTORY: None. . Aortic stent. COMPARISON: [facility] [place] [facility] [place] CHEST W [place]AST, 04/16/2018. . FINDINGS: Small thoracic stent graft is present. Right lung is clear Minimal parental changes left base Coaxial appropriate. CONCLUSION: Minimal parenchymal changes left base. Electronically signed by: Stephane Cox MD Board Certified Radiologist 04/24/2018 8:25 AM EST
--- NOTE | 2018-04-24 12:22 | P.PN ---
Subjective Interval history: Tr drainage 1L over last 24h. RN reports large amount of drainage noted around drain site as well. Painful with dressing changes on right buttock Working with PT but has been unable to get OOB yet Physical Exam Vital signs: Vital Signs 04/23/18 12:59 04/23/18 13:00 04/23/18 13:59 Temperature Pulse Rate 98 H 99 H 111 H Respiratory Rate 20 20 25 H Blood Pressure 117/54 L 136/58 L Pulse Oximetry 92 L 92 L 04/23/18 14:00 04/23/18 14:59 04/23/18 15:00 Temperature Pulse Rate 109 H 103 H 103 H Respiratory Rate 26 H 25 H 24 Blood Pressure 109/54 L Pulse Oximetry 94 L 94 L 04/23/18 15:59 04/23/18 16:00 04/23/18 16:59 Temperature 99.8 F H Pulse Rate 102 H 99 H 97 H Respiratory Rate 21 21 23 Blood Pressure 121/56 L 119/53 L Pulse Oximetry 94 L 93 L 93 L 04/23/18 17:00 04/23/18 17:59 04/23/18 18:00 Temperature Pulse Rate 96 H 92 H 92 H Respiratory Rate 25 H 20 16 Blood Pressure 120/49 L Pulse Oximetry 93 L 93 L 93 L 04/23/18 18:59 04/23/18 19:00 04/23/18 19:59 Temperature Pulse Rate 102 H 99 H 107 H Respiratory Rate 24 22 25 H Blood Pressure 137/63 137/63 Pulse Oximetry 93 L 93 L 92 L 04/23/18 20:00 04/23/18 20:05 04/23/18 20:59 Temperature Pulse Rate 102 H 99 H 110 H Respiratory Rate 24 24 Blood Pressure 124/58 L Pulse Oximetry 95 96 92 L 04/23/18 21:00 04/23/18 21:15 04/23/18 21:59 Temperature Pulse Rate 108 H 105 H Respiratory Rate 26 H 20 22 Blood Pressure 126/57 L Pulse Oximetry 94 L 93 L 04/23/18 22:00 04/23/18 22:59 04/23/18 23:00 Temperature Pulse Rate 111 H 101 H 102 H Respiratory Rate 28 H 16 21 Blood Pressure 105/50 L Pulse Oximetry 95 95 04/23/18 23:59 04/24/18 00:00 04/24/18 01:00 Temperature 99.9 F H Pulse Rate 100 H 103 H 103 H Respiratory Rate 21 17 20 Blood Pressure 113/55 L Pulse Oximetry 95 95 95 04/24/18 01:15 04/24/18 02:35 04/24/18 03:48 Temperature 99.3 F Pulse Rate 104 H Respiratory Rate 16 18 17 Blood Pressure 95/58 L Pulse Oximetry 96 04/24/18 04:00 04/24/18 05:34 04/24/18 08:00 Temperature 99.3 F 100.1 F H Pulse Rate 98 H 109 H Respiratory Rate 18 20 19 Blood Pressure 102/55 L 95/42 L Pulse Oximetry 99 93 L 04/24/18 08:25 04/24/18 10:44 Temperature Pulse Rate Respiratory Rate 16 Blood Pressure Pulse Oximetry 96 Intake & Output 04/23/18 04/24/18 04/24/18 18:59 06:59 18:59 Intake Total 525 / 525 600 / 600 Output Total 1450 / 1450 460 / 460 Balance -925 / -925 140 / 140 Weight 110.1 kg Intake: Oral 525 / 525 600 / 600 Output: Urine 650 / 650 350 / 350 Wound Drainage 800 / 800 110 / 110 # 1 Right Lateral Buttock 800 / 800 110 / 110 Other: # Incontinent Voids 1 Date of Last Bowel Movement 04/22/18 04/22/18 04/22/18 Narrative: GENERAL: 67 year old well-nourished, well developed female sitting up in bed. SKIN: Warm and dry. Right flank/lateral proximal thigh with ecchymosis noted. CARDIOVASCULAR: Regular rate and rhythm. RESPIRATORY: No accessory muscle use. Lungs clear and diminished to auscultation bilaterally. GASTROINTESTINAL: Abdomen soft, non-tender, nondistended. + BS. MUSCULOSKELETAL: Extremities without cyanosis, +2 generalized edema. Right thigh Tr drain in place to bulb suction with sanguineous drainage noted. MAEW, + perfused NEUROLOGICAL: Awake and alert. Voice soft. - Urinary Catheter Management Indwelling Temp Sensing Catheter Cath placed during this visit: yes, but has since been removed by the nurse Reason for continuing: Decision to DC catheter Insertion date: 04/17/18 Insertion time: 00:15 Removal date: 04/21/18 Removal time: 17:00 Results - Labs CBC & Chem 7: 04/23/18 05:36 04/23/18 05:36 Laboratory Results - last 24 hr 04/23/18 04/24/18 04/24/18 18:08 00:21 06:20 POC Glucose 87 106 80 - Imaging Impressions Chest X-Ray 04/24/18 06:00 CONCLUSION: Minimal parenchymal changes left base. Assessment and Plan - Plan INJURIES: Concussion Bilateral pulmonary contusions Multiple lumbar transverse process fxs Thoracic aorta transection w/ retroperitoneal hemorrhage RIGHT psoas muscle hemorrhage LEFT sacral ala fx (non-op) Hypovolemic shock PMHx: Tobacco use Concussion Supportive care Avoid second head injury Post concussive education Bilateral pulmonary contusions, Respiratory failure following trauma, Multiple lumbar transverse process fxs Supportive care 04/16: Intubated 04/20: Extubated Pulmonary toileting CXR shows slightly improved LLL consolidation Pain control Bowel regimen OOB- PT and OT ordered Thoracic aorta transection w/ retroperitoneal hemorrhage, RIGHT psoas muscle hemorrhage, Hypovolemic shock 04/16: Endovascular thoracic aortic stent placement 04/17: Embolization of superior gluteal & splenic artery Supportive care H&H stable Lovenox LEFT sacral ala fx Orthopedics consulted Non-op Pain control Bowel regimen OOB- PT and OT ordered NWB LLE RIGHT psoas muscle hemorrhage 04/19: I&D gluteal hematoma w/ drain placement Supportive care Continue Tr drain to bulb suction 1L output from drain/24h Plastic surgery consulted Wound care per Plastics Afebrile Pain control Bowel regimen OOB- PT and OT ordered Plan of care discussed with patient and RN at bedside. Collaborating Trauma MD agrees with plan. Case management consulted to assist with discharge planning. Cyr following for DC placement. Clear to DC when bed avail. - Attending Attestation patient seen at bedside drainage around dressing dc planning for cyr The exam, history, and the medical decision-making described in the above note were completed with the assistance of the mid-level provider. I reviewed and agree with the findings presented. I attest that I had a [id number] encounter with the patient on the same day, and personally performed and documented my assessment and findings in the medical record.
[2018-04-24] MEDS ORDERED: Sod Chloride 0.9% Inj 1,000 ML IV.SIG SCH (13:00)
[2018-04-24] MEDS: Enoxaparin Inj 30 MG/0.3 ML Syringe SQ SCH (20:08)
[2018-04-25] MEDS: Methocarbamol 500 MG Tablet PO SCH ×2 (06:31→14:09)
[2018-04-25] MEDS: Enoxaparin Inj 30 MG/0.3 ML Syringe SQ SCH (09:29)
[2018-04-25] MEDS: Lidocaine 5% Patch T-DERMAL SCH (09:29)
[2018-04-25] MEDS: Docusate Sodium 100 MG Capsule PO SCH (10:31)
[2018-04-25] MEDS ORDERED: Benzocaine/Menthol 15 MG/3.6 MG SF Lozenge BUCCAL PRN (11:17)
[2018-04-25 12:08] VITALS: BP 124/46; PULSE 108; RESP 18; TEMP 98.2; O2SAT 92
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
== END 2018-04-25 14:57 | DRG 957 ==
LOC: NEPI 19:07 → NEDA 21:15 → N03 23:04 → N06 04-24 02:12
PROVIDERS: ADMIT Surgery; ATTEND Surgery
CPT/HCPCS: 0034T; 0039T; 31500; 33881; 36200; 36247; 36248; 36430; 36600; 37243; 37244; 70450; 71010; 71045; 71260; 72125; 72129; 72132; 72170; 73070; 74177; 75605; 75726; 75774; 75957; 76499; 76937; 80048; 80053; 80307; 81001; 82040; 82805; 82948; 82962; 83735; 84100; 84132; 85014; 85018; 85025; 85027; 85384; 85610; 85730; 86850; 86900; 86901; 86923; 86927; 86965; 87641; 90715; 90774; 90775; 90784; 92526; 92610; 93005; 93306; 94002; 94003; 94150; 94640; 94650; 94651; 94656; 94657; 94664; 94665; 94668; 96374; 96375; 97110; 97161; 97167; 97530; 97535; 99291; A4646; C1014; C1751; C1769; C1874; C1887; C1893; C1894; C8952; C9113; C9503; G0195; G0390; J0131; J0330; J1644; J1650; J1815; J2250; J2270; J2405; J2704; J2720; J2765; J3010; J3370; J3480; J7030; J7040; J7050; J7120; P9016; P9017; P9035; P9045; Q9949; Q9963; Q9967